=== PATIENT | female | born 1960 | race Caucasian/White ===

== ENCOUNTER → 2019-05-29 10:48 | Outpatient (BNVA) | payer OTHER, SELFPAY | PROVIDERS: Family Provider Nurse Practitioner; PCP Nurse Practitioner; Visit Provider Orthopaedic Surgery | DX: S52.501A Unspecified fracture of the lower end of right radius, initial encounter for closed fracture (principal); S52.611A Displaced fracture of right ulna styloid process, initial encounter for closed fracture; X58.XXXA Exposure to other specified factors, initial encounter | CPT/HCPCS: 73110 ==

== ENCOUNTER 2019-12-05 11:47 | Outpatient (CLI) | payer OTHER, SELFPAY | END 2019-12-05 11:48 | disposition home or self-care (01) | LOC: SPT 11:48 | PROVIDERS: Family Provider Nurse Practitioner; PCP Nurse Practitioner; Visit Provider Orthopaedic Surgery | DX: Z46.89 Encounter for fitting and adjustment of other specified devices (principal); M18.11 Unilateral primary osteoarthritis of first carpometacarpal joint, right hand | CPT/HCPCS: 97760; L3924 ==

== ENCOUNTER → 2020-01-09 13:53 | Outpatient (BNVA) | payer OTHER, SELFPAY | PROVIDERS: Family Provider Nurse Practitioner; PCP Nurse Practitioner; Visit Provider Urology | DX: N39.0 Urinary tract infection, site not specified (principal); R31.29 Other microscopic hematuria | CPT/HCPCS: 81001 ==

== ENCOUNTER 2020-02-05 08:18 | Outpatient (CLI) | payer OTHER, SELFPAY ==
--- NOTE | 2020-02-05 08:30 | CT_ITS ---
WS: [id number] CT CHEST WITH INTRAVENOUS CONTRAST HISTORY: rib pain L side x 5 weeks, pain inspiration, cough; surgical clearance TECHNIQUE: Contiguous 5 mm axial imaging performed on the thorax. Coronal and sagittal reformats are submitted. All CT scans at [facility] use at least one of these dose optimization techniq ues: automated exposure control; mA and/or kV adjustment per patient size (includes targeted exams wh ere dose is matched to clinical indication); or iterative reconstruction. CONTRAST: Omnipaque 300; 95 mL IV. DLP: 935.96 mGycm COMPARISON: None available. Lungs and central airway: Pulmonary hyperexpansion and changes of emphysema. There is subsegmental sc attered multi lobar groundglass opacifications. No dense consolidations. Mild thickening along the fi ssures. Pleura: Normal. No pleural effusion. Heart and pericardium: Mild enlargement of the heart chambers. No pericardial effusion. Mediastinum and albina: No mediastinum or hilar adenopathy. Vessels: Normal size aortic and pulmonary artery. No coronary artery calcifications. Chest wall and lower neck: No soft tissue masses. Upper abdomen: Small hiatal hernia. Visualized liver is normal. Negative gallbladder. LEFT adrenal ad enoma measures 1.5 cm. No change since 06/05/2008. Osseous structures: There are several nondisplaced fractures in the inferior anterolateral LEFT thora x. Fractures involve at least the sixth through ninth ribs. Fourth and fifth ribs are slightly deform ed may be from old fractures or subacute fractures. CT/CT chest w con* [id number] IMPRESSION: 1. Healing nondisplaced LEFT anterolateral rib fractures. 6 through ninth ribs are fractured with partial healing. Possible remote fractures involving the fo urth and fifth ribs. 2. Chronic emphysema. 3. Scattered pulmonary groundglass opacifications. Consider pneumonitis. 4. Stable LEFT adrenal adenoma.
[2020-02-05] MEDS: iohexol 300 mg/mL 100 mL Btl IV (08:52)
== END 2020-02-05 08:19 | disposition home or self-care (01) ==
LOC: RADWPI 08:22
PROVIDERS: Family Provider Nurse Practitioner; PCP Nurse Practitioner; Visit Provider Nurse Practitioner Family
DX: R07.81 Pleurodynia (principal); R07.1 Chest pain on breathing; R05 Cough; S22.42XA Multiple fractures of ribs, left side, initial encounter for closed fracture; X58.XXXA Exposure to other specified factors, initial encounter; J43.9 Emphysema, unspecified; D35.02 Benign neoplasm of left adrenal gland
CPT/HCPCS: 71260; Q9967

== ENCOUNTER 2020-02-29 11:18 | Outpatient (CLI) | payer OTHER, SELFPAY ==
--- NOTE | 2020-02-29 16:15 | XR_ITS ---
WS: [id number] Bone mineral density performed on a [employer], today Clinical data: RIB FRACTURE Findings: The first 4 lumbar vertebral bodies demonstrated the bone mineral density of 0.926 g/cm2 for a young adult T score of -2.1. Measurement of the left hip reveals a bone mineral density of 0.802 g/cm2 with a young adult T score of -1.6. Measurement of the right hip reveals the bone mineral density of 0.768 g/cm2 for young adult T score of -1.9. XR/XR DEXA axial skeleton* [id number] Impression: Osteopenia of the lumbar spine and both hips.
== END 2020-02-29 11:19 | disposition home or self-care (01) ==
LOC: RADWPI 11:21
PROVIDERS: Family Provider Nurse Practitioner; PCP Nurse Practitioner; Visit Provider Nurse Practitioner Family
DX: S22.39XA Fracture of one rib, unspecified side, initial encounter for closed fracture (principal); M85.89 Other specified disorders of bone density and structure, multiple sites; X58.XXXA Exposure to other specified factors, initial encounter
CPT/HCPCS: 77080

== ENCOUNTER → 2020-03-14 14:23 | Outpatient (BNVA) | payer OTHER, SELFPAY | PROVIDERS: Family Provider Nurse Practitioner; PCP Nurse Practitioner; Visit Provider Internal Medicine Critical Care Medicine | DX: Z11.59 Encounter for screening for other viral diseases (principal) | CPT/HCPCS: 87635 ==

== ENCOUNTER 2020-03-19 08:59 | Outpatient (CLI) | payer OTHER, SELFPAY ==
--- NOTE | 2020-03-19 12:20 | PFTS_ITS ---
Date of Study:03/19/20 Date of Dictation: MECHANICS: Forced vital capacity (FVC) is normal. Forced expiratory volume in one second (FEV1) is normal. FEV1/FVC is normal. FLOW VOLUME LOOP: Normal. LUNG VOLUMES: Total lung capacity (TLC) is reduced. Residual volume (RV) is reduced. DIFFUSING CAPACITY FOR CARBON MONOXIDE: Mildly reduced. INTERPRETATION: The spirometry is normal. There is reduction of total lung capacity and residual volume. This could be seen in early restrictive disease like interstitial lung disease. Gas exchange (DLCO) is mildly reduced. MTDD
== END 2020-03-19 09:00 | disposition home or self-care (01) ==
LOC: RT 09:00
PROVIDERS: PCP Nurse Practitioner; Visit Provider Internal Medicine Critical Care Medicine
DX: J43.9 Emphysema, unspecified (principal)
CPT/HCPCS: 94010; 94726; 94729

== ENCOUNTER 2020-05-12 07:32 | Outpatient (CLI) | payer OTHER, SELFPAY ==
[2020-05-12 08:24] VITALS: BMI 27.3
--- NOTE | 2020-05-12 09:09 | ECG_ITS ---
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 Interpretive Statements NAME OF STUDY: EXERCISE SESTAMIBI STRESS TEST INDICATION: Exertional Chest Pain Baseline blood pressure of 166/99 mm Hg, heart rate of 86 beats per minute and oxygen saturation of 96%. EKG showed normal sinus rhythm, normal axis with normal ST-Ts. The patient exercised for 5 minutes 6 seconds on a standard Dalton protocol. Patient attained a maximum heart rate of 153 beats per minute(95% of the maximum predicted heart rate) with a blood pressure at the peak exercise of 216/89 mm Hg and oxygen saturation 96%. The EKG at the peak exercise revealed sinus tachycardia with no significant ST-T wave changes. Patient did not have any chest pain or any significant arrhythmis with the exercise. During the recovery phase, there were no new changes. Blood pressure at the end of the recovery phase was 141/92 mm Hg with a heart rate of 94 beat per minute and oxygen saturation 97%. CONCLUSION: 1. Normal EKG response to treadmill exercise. 2. No exercise-induced chest pain or cardiac arrhythmia. 3. Fair exercise tolerance, attained a maximum of 7 METs. 4. Baseline hypertension with hypertensive response to exercise. 5. Perfusion scan will be documented separately. Electronically Signed On 05-13-2020 10:27:38 SIZING MACHINE TENDER by Kelsey Vidales M.D. [email or web address]
--- NOTE | 2020-05-12 09:09 | NMCV_ITS ---
NM mike perf SPECT r/s* [id number] Nupur Rodriguez Age: 60 Gender: F : 1960 Exam Date: 05/12/2020 09:13 Ordering Phys: Fidel Villar MD Technologist: ARNOL Navarro Exam Location: [facility] Indications: SHORTNESS OF BREATH STRESS TEST Please [facility] for [facility] IMAGE PROTOCOL Rest/Stress 1 Exercise Day Radiopharmaceutical Dose (mCi) Administration Site Administered by Rest: Tc-99m 10.9 IV ARNOL Navarro Sestamibi Stress:Tc-99m 31.3 IV Jessi Velazquez, COMPLIANCE SPECIALIST Sestamibi Rest: 12-May-2020 60 Discovery 630 Stress: 12-May-2020 15 Discovery 630 Radiopharmaceutical was injected at 88 % maximum heart rate. Images obtained in supine and prone position. SPECT RESULTS Technical Quality: Excellent Raw Data Analysis: Normal Image Corrections: No attenuation or motion correction applied Summed Stress Score: 0 Summed Rest Score: 0 Summed Difference Score: 0 PERFUSION FINDINGS SPECT images demonstrate homogeneous tracer distribution throughout the myocardium. FUNCTIONAL RESULTS (calculated via Gated SPECT) Stress Image LV EF (%): 78 Stress EDV (mL):87 TID: 1.02 Stress ESV (mL):19 FUNCTIONAL FINDINGS: The left ventricle is normal in size. Transient Ischemia Dilatation of 1. There is normal left ventricular systolic function. The left ventricular ejection fraction is normal with a value of 78%. No regional wall motion abnormality. There is normal left ventricular wall thickening. IMPRESSIONS 1. Myocardial perfusion imaging is normal. 2. Overall left ventricular systolic function is normal without regional wall motion abnormalities. 3. The left ventricular ejection fraction is normal with a value of 78%. 4. This study suggests a low likelihood of angiographically significant coronary artery disease. Kelsey Vidales MD (Electronically Signed) Final Date: 12 May 2020 14:51 S
[2020-05-12 09:55] VITALS: BP 141/92; PULSE 86
== END 2020-05-12 07:33 | disposition home or self-care (01) ==
PROVIDERS: PCP Nurse Practitioner; Visit Provider Internal Medicine Critical Care Medicine
DX: R07.9 Chest pain, unspecified (principal)
CPT/HCPCS: 78452; 93017; A9500

== ENCOUNTER → 2020-07-15 09:19 | Outpatient (BNVA) | payer OTHER, SELFPAY | PROVIDERS: PCP Nurse Practitioner; Visit Provider Urology | DX: N39.0 Urinary tract infection, site not specified (principal) | CPT/HCPCS: 81003 ==

== ENCOUNTER → 2020-08-06 11:45 | Outpatient (BNVA) | payer OTHER, SELFPAY | PROVIDERS: PCP Nurse Practitioner; Visit Provider Specialist | DX: R56.9 Unspecified convulsions (principal); G43.711 Chronic migraine without aura, intractable, with status migrainosus; F17.210 Nicotine dependence, cigarettes, uncomplicated | CPT/HCPCS: 99215 ==

== ENCOUNTER 2020-09-09 12:48 | Outpatient (CLI) | payer OTHER, SELFPAY ==
--- NOTE | 2020-09-09 13:01 | CT_ITS ---
WS: [id number] Exam: CT chest wo con [id number] Date/Time of Exam: 09/09/2020 1:50 PM Reason For Exam: SHORTNESS OF BREATH DLP: 294.[address] scans at [facility] use at least one of these dose optimization techniques: automat ed exposure control; mA and/or kV adjustment per patient size (includes targeted exams where dose is matched to clinical indication); or iterative reconstruction. Comparison 07/07/2019. High-resolution CT scan performed. The lungs are hyperinflated. No acute infiltrates are seen. Stable appearing small nodular density in the apex of the left lung most likely representing scar tissue formation. There is bronchiectasis. T here are scattered groundglass densities in both lungs unchanged. No pleural effusion. No pericardial effusion. The airway is patent. The thoracic aorta is normal in caliber. No significant mediastinal or hilar lymphadenopathy. Stable small left adrenal nodule most likely an adenoma. Coronary artery ca lcifications noted. No destructive bone lesions are demonstrated. CT/CT chest wo con [id number] IMPRESSION: 1. Pulmonary parenchymal scar tissue formation in the left apex stable. 2. No suspicious pulmonary mass or nodule. 3. Bronchiectasis and emphysematous changes. Scattered groundglass densities in both lungs which is been noted previously. 4. No lymphadenopathy in the chest. 5. Stable small left adrenal nodule most likely an adenoma.
== END 2020-09-09 12:49 | disposition home or self-care (01) ==
LOC: RAD 12:50
PROVIDERS: PCP Nurse Practitioner; Visit Provider Internal Medicine Critical Care Medicine
DX: R06.02 Shortness of breath (principal); J47.9 Bronchiectasis, uncomplicated
CPT/HCPCS: 71250

== ENCOUNTER → 2020-12-04 13:22 | Outpatient (BNVA) | payer OTHER, SELFPAY | PROVIDERS: PCP Nurse Practitioner; Visit Provider Surgery | DX: Z86.010 Personal history of colon polyps (principal); Z20.822 Contact with and (suspected) exposure to COVID-19 | CPT/HCPCS: 87635 ==

== ENCOUNTER → 2020-12-09 09:15 | Outpatient (BNVA) | payer OTHER, SELFPAY | PROVIDERS: PCP Nurse Practitioner; Visit Provider Specialist | DX: R55 Syncope and collapse (principal); G43.711 Chronic migraine without aura, intractable, with status migrainosus; J43.9 Emphysema, unspecified; F17.290 Nicotine dependence, other tobacco product, uncomplicated | CPT/HCPCS: 99214 ==

== ENCOUNTER 2021-07-06 10:58 | Outpatient (CLI) | payer OTHER, SELFPAY ==
--- NOTE | 2021-07-06 11:00 | MR_ITS ---
WS: [id number] MRI HEAD WITHOUT CONTRAST TECHNIQUE: Sagittal T1, T2 axial, T2 axial FLAIR, axial and coronal T1 images, axial susceptibility w eighted imaging, axial diffusion weighted images, and coronal T2 images were obtained. CLINICAL INFORMATION: Z86.73 - Personal history of transient ischemic attack (T... COMPARISON: MRI 04/03/[address] 2018 FINDINGS: No evidence of restricted diffusion to suggest acute ischemia. Ventricular system and basal cisterns are patent. Moderate supratentorial subcortical and periventricular white matter changes moderately progressed co mpared to 2014 likely due to small vessel disease in a patient this age. This can also be seen in ass ociation with hypertension, diabetes, and migraine headaches. Normal posterior fossa. Normal vascular flow voids at the skull base. No extra-axial fluid collection s. No evidence of mass or mass effect. Paranasal sinuses and mastoid air cells well aerated. Mild muc osal thickening in the mastoid tips. No hemosiderin on the susceptibly weighted images. Normal optic chiasm and pituitary infundibulum. Te mporal lobes and hippocampal formations are normal in appearance. MR/MR head wo con* [id number] IMPRESSION: 1. No evidence of restricted diffusion to suggest acute ischemia. 2. Moderate supratentorial white matter changes progressed compared to 2013 li akua due to small vessel disease in a patient this age. Mild parenchymal volume loss. 3. No hemosiderin on the susceptibly weighted images. 4. Temporal lobes and hippocampal formations are normal in appearance. 5. Paranasal sinuses and mastoid air cells well aerated. 6. No other significant findings.
--- NOTE | 2021-07-06 11:45 | MR_ITS ---
WS: [id number] MRA HEAD TECHNIQUE: Axial 3-D TOF images obtained with axial images and axial, sagittal, and coronal 2-D refor matted images. CLINICAL INFORMATION: Z86.73 - Personal history of transient ischemic attack (T... COMPARISON: None. FINDINGS: Distal vertebral bodies are patent. Basilar artery is patent. LEFT dominant distal vertebral artery. Normal vascularity to the OYSTER TONGER territory bilaterally. Both ICAs are patent at the skull base. Normal vascularity to the TOR and MCA territories bilaterally . No evidence of high-grade proximal stenosis or aneurysm. MR/MR angio head wo con [id number] IMPRESSION: Normal intracranial MRA.
== END 2021-07-06 10:59 | disposition home or self-care (01) ==
LOC: RAD 11:02
PROVIDERS: PCP Nurse Practitioner; Visit Provider Specialist
DX: Z86.73 Personal history of transient ischemic attack (TIA), and cerebral infarction without residual deficits (principal)
CPT/HCPCS: 70544; 70551

== ENCOUNTER → 2021-07-16 09:54 | Outpatient (BNVA) | payer OTHER, SELFPAY | PROVIDERS: PCP Nurse Practitioner; Visit Provider Nurse Practitioner Family | DX: N39.0 Urinary tract infection, site not specified (principal) | CPT/HCPCS: 81003 ==

== ENCOUNTER 2021-11-13 12:52 | Emergency (ER) | payer OTHER, SELFPAY ==
[2021-11-13 13:26] VITALS: BP 153/76; PULSE 92; RESP 14; TEMP 36.5; O2SAT 97; BMI 22.8
--- NOTE | 2021-11-13 13:51 | ED_ITS ---
HPI - Back Pain/Injury General: Chief Complaint: Back Pain/Injury Stated Complaint: back pain Time Seen by Provider: 11/13/21 13:35 Source: patient Mode of arrival: ambulatory Limitations: no limitations History of Present Illness: Patient is a nice 61-year-old female who presents to ED today with a complaint of lower back pain that began approximately 6 days ago after she was carrying something heavy and twisted wrong. Patient states she has been treating conservatively at home with ice, heat, Salonpas, and Tylenol all without much relief of her discomfort. She states she is now getting muscle spasms that seem to be worse at night. She is not having any radicular symptoms into her lower extremities. She is not having any dysfunction with bowel or bladder. MD elicited complaint: back pain Pertinent past history: recent trauma Onset (ago): day(s) Timing: constant Severity: severe Pain scale (0-10): 8 Similar Symptoms Previously: No Location: lumbar spine, right lower back and left lower back Radiation: none Exacerbating factors: movement and lifting Relieving factors: none Context: while lifting and turning/twisting Associated symptoms: Reports no associated symptoms; Deny abdominal pain, chills or fever(s) Treatments prior to arrival: cold therapy, heat therapy and acetaminophen Work related injury: No Review of Systems Const: Denies: fever(s) or chills Card: Denies: chest pain Resp: Denies: dyspnea GI: Denies: abdominal pain : Denies: flank pain Musc: Reports: back pain; Denies: neck pain, extremity pain or joint pain Neuro: Denies: headache(s), numbness in extremities, weakness in extremities or sensory changes [facility] ED PFSH: Medical History GERD (gastroesophageal reflux disease) History of colon polyps Microscopic hematuria Migraines Recurrent UTI Symptoms consistent with longstanding history of chronic cystitis. Prompt breakthrough after completing antibiotics. Rib fracture Surgical History H/O wrist surgery S/P appendectomy S/P hysterectomy Status post colonoscopy Family History Father No problems noted. Mother , 32 Cancer Brain Social History (Reviewed 07/01/22 @ 13:57 by JYOTSNA Deluna Smoking and tobacco status: current every day smoker e-cigarettes E-Cigarette Details: vaporizer device and with nicotine E-cig/vape details: Hx of 0.5 PPD x 47 Years Quit status (tobacco): considering quitting Second hand smoke exposure: Yes Smoking risk assessment/counseling performed?: Yes Alcohol intake: never Counseling given: No Counseling given: No Lives independently: Yes Household members: spouse Marital status: Current occupational status: retired History of recent travel: No Current gender identity: Female Physical Exam Const: COMMON NORMALS: no acute distress, average body habitus, patient oriented x3, no limitations, healthy appearing, alert and well nourished GENERAL APPEARANCE: cooperative ORIENTATION/CONSCIOUSNESS: Yes awake, Yes oriented to person, Yes oriented to place and Yes oriented to time Neck/C-Spine: COMMON NORMALS: full ROM Resp: COMMON NORMALS: normal respiratory effort : COMMON NORMALS: Yes no CVA tenderness BLADDER/KIDNEY EXAM: Yes no CVA tenderness Back/Pelvis: COMMON NORMALS: no CVA tenderness THORACIC SPINE/UPPER BACK: Yes normal to inspection, No thoracic spinal tenderness, No paraspinal muscle tenderness and No paraspinal muscle spasm LUMBAR SPINE/LOWER BACK: Yes normal to inspection, No lumbar spinal tenderness, Yes paraspinal muscle tenderness, Yes paraspinal muscle spasm and Yes straight leg raise negative bilaterally PELVIS: Yes buttocks normal SACROILIAC JOINTS: Yes SI joints normal SACRUM: no tenderness COCCYX: no tenderness BACK IMAGE (FEMALE): 1. 2. TTP Extremity: COMMON NORMALS: normal to inspection and full ROM GENERAL: Yes normal exam except as noted Neuro: PEPE COMA SCALE: document GCS findings [place] coma scale eye opening: Spontaneous [place] coma scale verbal response: Orientated [place] coma scale motor response: Obey commands [place] coma scale total score: 15 COMMON NORMALS: patient oriented x3, moves all extremities, no focal motor deficits and no sensory deficits noted SENSORIUM/ORIENTATION: Yes alert, Yes oriented to person, Yes oriented to place and Yes oriented to time Skin: COMMON NORMALS: no rashes or lesions noted GENERAL SKIN EXAM: no rashes or lesions noted Course Vital Signs: Vital signs: Vital Signs Temperature 97.7 F 11/13/21 13:26 Pulse Rate 92 11/13/21 13:26 Respiratory Rate 14 11/13/21 13:26 Blood Pressure 153/76 11/13/21 13:26 Pulse Oximetry 97 11/13/21 13:26 MDM - Back Pain/Injury Medical Decision Making Patient states she feels markedly improved after IM medications. We will place her on methylprednisolone, robaxin, and ibuprofen that she can use at home. Recommend follow-up with primary care next week if back pain is not improving. Discharge Plan Discharge Patient Disposition: Home Clinical Impression: Strain of fascia of lower back Condition: Stable Prescriptions: New methocarbamol 500 mg tablet 1,000 mg PO Q8H Qty: 30 0RF ibuprofen 800 mg tablet 800 mg PO Q8H PRN (Reason: pain) Qty: 20 0RF Medrol (Rancho) 4 mg tablets,dose pack See Rx Instructions .ROUTE .COMPLEX Qty: 21 0RF Rx Instructions: orally per package directions No Action omeprazole 20 mg capsule,delayed release(DR/EC) 20 mg PO ONCE 0RF venlafaxine 75 mg capsule,extended release 24hr 75 mg PO BID Qty: 60 5RF Rx Instructions: For migraine prevention. Take 1 cap in the morning and 1 cap at night. Spiriva with HandiHaler 18 mcg capsule, w/inhalation device 1 cap INHALATION DAILY 30 Days Qty: 60 3RF Rx Instructions: puncture 1 cap using device; one dose = 2 inhalations meclizine 25 mg tablet 25 mg PO BID 30 Days Qty: 60 0RF fluticasone propionate [Flonase Allergy Relief] 50 mcg/actuation spray,suspension 1 spray intranasal BID Qty: 15.8 3RF Rx Instructions: administer into each nostril doxycycline hyclate 100 mg capsule 100 mg PO BID Qty: 30 2RF Discharge Orders: Discharge ED (Routine); Ordered 11/13/21 Ordered By: Kristen Dhaliwal Referrals: Erin Magana, HEALTH CARE SOCIAL WORKER-C [Primary Care Provider] - Patient Instructions: Low Back Strain (ED) Coding Level of Care Code ED Seismograph Chief for Jenny Fwtoño Exam Comprehensive
[2021-11-13] MEDS: dexamethasone 10 mg/mL INJ 8 MG IM (14:18)
[2021-11-13] MEDS: ketorolac 60 mg/2 mL INJ IM (14:18)
[2021-11-13] MEDS: orphenadrine 30 mg/mL Inj 2 mL 60 MG IM (14:19)
== END 2021-11-13 14:40 | disposition home or self-care (01) ==
PROVIDERS: Emergency Provider Physician Assistant; PCP Nurse Practitioner
DX: S39.012A Strain of muscle, fascia and tendon of lower back, initial encounter (principal); F17.290 Nicotine dependence, other tobacco product, uncomplicated; X50.1XXA Overexertion from prolonged static or awkward postures, initial encounter
CPT/HCPCS: 96372; 99284; J1100; J1885; J2360

== ENCOUNTER 2021-12-10 12:16 | Outpatient (CLI) | payer OTHER, SELFPAY ==
--- NOTE | 2021-12-10 12:38 | XR_ITS ---
WS: [id number] Exam: XR KUB [id number] Date/Time of Exam: 12/10/2021 12:39 PM Reason For Exam: RECURRENT UTI No bowel obstruction or free air. No sign of organ enlargement. There are ovoid opacities seen in the upper left abdomen and right pelvic region that may represent medication in the GI tract. Mild degen erative changes of the lumbar spine. Probable old low-grade compression fracture of T12. XR/XR KUB [id number] IMPRESSION: 1. No acute abdominal finding.
== END 2021-12-10 12:17 | disposition home or self-care (01) ==
PROVIDERS: PCP Nurse Practitioner; Visit Provider Urology
DX: N39.0 Urinary tract infection, site not specified (principal)
CPT/HCPCS: 74018; 81003

== ENCOUNTER 2021-12-16 09:39 | Outpatient (CLI) | payer OTHER, SELFPAY ==
--- NOTE | 2021-12-16 10:30 | CT_ITS ---
WS: [id number] CT ABDOMEN PELVIS TECHNIQUE: Noncontrast CT of the abdomen and pelvis with coronal and sagittal reformatted images. CLINICAL INFORMATION: RECURRENT UTI COMPARISON: CT 2009 DLP: 998.[address] scans at [facility] use at least one of these dose optimization techniques: automated e xposure control; mA and/or kV adjustment per patient size (includes targeted exams where dose is matc hed to clinical indication); or iterative reconstruction. FINDINGS: Mild hepatomegaly. Normal GE junction. Normal gallbladder. Noncontrast pancreas is normal. RIGHT adrenal gland is normal. LEFT adrenal adenoma measuring 2.1 cm. Noncontrast spleen is normal. N ormal noncontrast pancreas. No obstructing renal or ureteral calculi. No hydronephrosis. Incidental p elvic phleboliths. Normal noncontrast bladder. Sigmoid diverticulosis. No evidence of acute diverticu litis. Normal caliber abdominal aorta. Moderate aortic calcification. Lung bases are well aerated. Mild compression superior endplate T12 with minimal retropulsion posterior superior cortex. Mild cent ral canal stenosis. Persistent visualized fracture cleft. This may be subacute and recommend correlat ion for thoracolumbar pain. This can be further evaluated MRI. Suggestion of mild associated paravert ebral edema. This is new since CT chest February 05, 2020. Prior hysterectomy. CT/CT kidney stone [id number] IMPRESSION: 1. No obstructing renal or ureteral calculi. No hydronephrosis. 2. Normal noncontrast bladder. 3. Sigmoid diverticulosis. 4. Prior hysterectomy. 5. Mild compression superior endplate T12 with minimal retropulsion posterior superior cortex. Mild central canal stenosis. Persistent visualized fracture cl eft. This is suspicious for subacute fracture and recommend correlation for tho racolumbar pain. This can be further evaluated MRI.
== END 2021-12-16 09:40 | disposition home or self-care (01) ==
LOC: RAD 09:40
PROVIDERS: PCP Nurse Practitioner; Visit Provider Nurse Practitioner Family
DX: N39.0 Urinary tract infection, site not specified (principal); K57.30 Diverticulosis of large intestine without perforation or abscess without bleeding; Z90.710 Acquired absence of both cervix and uterus
CPT/HCPCS: 74176; 81003

== ENCOUNTER 2022-01-19 08:58 | Outpatient (CLI) | payer OTHER, SELFPAY ==
--- NOTE | 2022-01-19 08:00 | MR_ITS ---
WS: [id number] MRI THORACIC SPINE noncontrast. HISTORY: Age indeterminate T12 compression fracture. COMPARISON: CT 12/16/2021 TECHNIQUE: Multiplanar sequences are performed in sagittal and axial planes. Reverse S-shaped thoracolumbar scoliosis. Posterior thoracic vertebral bodies are normally aligned. D isc spaces are mildly narrowed throughout. There is increased signal throughout the T12 vertebral bod y without extension into the posterior elements. Concave deformity of the superior endplate T12. Loss of height by approximately 20%. Normal signal within the thoracic cord. Conus tapers normally and ends near L1. T1-2: Normal. T2-3: Mild bilateral facet arthritis. Mild LEFT foraminal narrowing due to facet arthritis. T3-4: Normal. T4-5: Normal. T5-6: Normal. T6-7: Normal. T7-8: Mild facet arthritis. No stenosis. T8-9: Mild facet arthritis. No stenosis. T9-10: Very shallow central disc protrusion without stenosis. Mild facet arthritis. T10-11: Mild bilateral facet arthritis. T11-12: Mild disc bulging. Mild bilateral foraminal narrowing. Very slight, less than 2 mm retropuls ion of posterior superior endplate of T12. MR/MR thoracic spin wo con* [id number] IMPRESSION: 1. T12 25% subacute fracture with only very minimal retropulsion of the clay artist ior superior endplate. Very mild bilateral foraminal narrowing. No high-grade s tenosis. Stenosis has not progressed since the prior CT from 12/16/2021. 2. Mild scoliosis. 3. Facet joint arthritis is mild throughout the thoracic spine as described ab ove. No central stenosis.
== END 2022-01-19 08:59 | disposition home or self-care (01) ==
LOC: RAD 08:59
PROVIDERS: PCP Nurse Practitioner; Visit Provider Family Medicine
DX: R93.7 Abnormal findings on diagnostic imaging of other parts of musculoskeletal system (principal); M47.814 Spondylosis without myelopathy or radiculopathy, thoracic region; M41.9 Scoliosis, unspecified
CPT/HCPCS: 72146; 72148

== ENCOUNTER 2022-01-19 08:59 | Outpatient (CLI) | payer OTHER, SELFPAY ==
--- NOTE | 2022-01-19 08:45 | MR_ITS ---
WS: [id number] MRI LUMBAR SPINE NONCONTRAST HISTORY: T12 fracture. COMPARISON: None available. TECHNIQUE: Sagittal and axial multisequence imaging is submitted. Normal lumbar alignment with no compression fractures or marrow edema. Mild disc desiccation throughout the lumbar spine. Very slight straightening of the lordosis. Conus terminates normally at L1-2 disc level. T12 20% compression fracture with edema throughout the vertebral body. Subacute compression fracture by 20%. No significant retropulsion and no contact on the conus. L1-L2: Normal. L2-L3: Mild facet and ligamentum flavum hypertrophy. No stenosis. L3-L4: Very mild disc bulging with mild ligamentum flavum and facet arthritis. Small amount of fluid in the facet joints. No significant stenosis. L4-L5: Mild disc bulging and ligamentum flavum and facet arthritis. Small amount of fluid in the face t joints. Mild encroachment into the subarticular recesses. No stenosis. L5-S1: Mild annular disc bulging and osteophytic ridging. Small disc osteophyte complexes in the fora mariaelena, slightly greater on the LEFT. Mild contact on the LEFT exiting L5 nerve root. Paravertebral soft tissues are negative. MR/MR lumbar spine wo con* [id number] IMPRESSION: 1. Mild bilateral foraminal stenosis at L5-S1 with slightly greater disc osteo phyte contact on the LEFT L5 nerve root. 2. Subacute T12, 20% compression fracture without retropulsion.
== END 2022-01-19 09:00 | disposition home or self-care (01) ==
LOC: RAD 09:00
PROVIDERS: PCP Nurse Practitioner; Visit Provider Family Medicine
DX: R93.7 Abnormal findings on diagnostic imaging of other parts of musculoskeletal system (principal); M48.07 Spinal stenosis, lumbosacral region; M25.78 Osteophyte, vertebrae; S22.089A Unspecified fracture of T11-T12 vertebra, initial encounter for closed fracture; X58.XXXA Exposure to other specified factors, initial encounter
CPT/HCPCS: 72148

== ENCOUNTER → 2022-01-29 10:32 | Outpatient (BNVA) | payer OTHER, SELFPAY | PROVIDERS: PCP Nurse Practitioner; Visit Provider Nurse Practitioner Family | DX: N39.0 Urinary tract infection, site not specified (principal); R31.29 Other microscopic hematuria | CPT/HCPCS: 81003 ==

== ENCOUNTER → 2022-02-23 14:08 | Outpatient (BNVA) | payer OTHER, SELFPAY | PROVIDERS: PCP Nurse Practitioner; Visit Provider Orthopaedic Surgery | DX: M48.062 Spinal stenosis, lumbar region with neurogenic claudication (principal); M25.78 Osteophyte, vertebrae | CPT/HCPCS: 72110 ==

== ENCOUNTER 2022-05-26 05:28 | Day surgery (SDC) | payer OTHER, SELFPAY ==
[2022-05-24 09:17] VITALS: BMI 22.8
[2022-05-26 06:08] VITALS: BP 113/74; PULSE 76; RESP 18; TEMP 36.5; O2SAT 96
[2022-05-26] MEDS: sodium chloride 0.9% 1,000 ML 30 ML IV ×2 (06:17→07:37)
--- NOTE | 2022-05-26 06:23 | PM.HP ---
Providers/Chief Complaint Primary Care Provider: ALEXANDRA Angeles Chief Complaint: K21.9, R10.31 History of Present Illness Nupur Rodriguez is a 62 year old female here for EGD and colonoscopy Medications/Allergies Home Medications Medication Instructions Recorded Confirmed Last Taken Type omeprazole 20 mg capsule,delayed 20 mg PO DAILY 05/29/19 05/26/22 05/25/22 History release ibuprofen 800 mg tablet 800 mg PO Q8H PRN pain #20 tabs 11/13/21 05/26/22 Unknown Rx doxycycline hyclate 100 mg capsule 100 mg PO BID #60 caps 01/29/22 05/26/22 05/25/22 Rx fluticasone propionate 50 1 spray intranasal BID PRN 05/24/22 05/26/22 05/25/22 History mcg/actuation nasal Congestion spray,suspension (Flonase Allergy Relief) venlafaxine 75 mg capsule,extended 75 mg PO DAILY 05/24/22 05/26/22 05/25/22 History release 24 hr Allergies Allergy/AdvReac Type Severity Reaction Status Date / Time morphine Allergy nausea Verified 05/26/22 06:05 Penicillins Allergy Unknown Verified 05/26/22 06:05 PFSH Acute PFSH: Medical History GERD (gastroesophageal reflux disease) History of colon polyps Microscopic hematuria Migraines Recurrent UTI Symptoms consistent with longstanding history of chronic cystitis. Prompt breakthrough after completing antibiotics. Rib fracture Surgical History H/O wrist surgery History of esophagogastroduodenoscopy (EGD) Hx of colonoscopy with polypectomy 10 yrs ago S/P appendectomy S/P hysterectomy Status post colonoscopy Family History Father No problems noted. Mother , 32 Cancer Brain Social History Smoking and tobacco status: current every day smoker e-cigarettes E-Cigarette Details: vaporizer device and with nicotine E-cig/vape details: Hx of 0.5 PPD x 47 Years Quit status (tobacco): considering quitting Second hand smoke exposure: Yes Smoking risk assessment/counseling performed?: Yes Alcohol intake: never Counseling given: No Counseling given: No Lives independently: Yes Household members: spouse Marital status: / Current occupational status: retired History of recent travel: No Current gender identity: Female Vitals/I&O/Wt Last Vital Signs Temp 97.7 F 05/26/22 06:08 Pulse 76 05/26/22 06:08 Resp 18 05/26/22 06:08 BP 113/74 05/26/22 06:08 Pulse Ox 96 05/26/22 06:08 O2 Del Method 05/26/22 06:08 Weight last 48 hrs Weight 150 lb A&P Assessment and plan (1) History of colon polyps: Plan EGD and colonoscopy with random biopsies and stool studies Attestations Medical Necessity Statement*: Home Coding Level of Care Code Acute Control Valve Mechanic for Jenny Fwd Diagnoses History of colon polyps Z86.010
--- NOTE | 2022-05-26 06:46 | ANES.PREANE2 ---
Pre-Anesthetic Assessment Height/Weight: Height 1.73 m Weight 68.039 kg Temp Pulse Resp BP Pulse Ox O2 Del Method 97.7 F 76 18 113/74 96 05/26/22 06:08 05/26/22 06:08 05/26/22 06:08 05/26/22 06:08 05/26/22 06:08 05/26/22 06:08 Operation Date: 05/26/22 07:00 Proposed Procedures p EGD and Colonoscopy 22407,28329,K21.9,R10.31,K52.9(Not Applicable) - Joel Hicks DO s Colonoscopy(Not Applicable) - Joel Hicks DO Was Beta Colt taken within 24 hours: N/A Was Clonidine taken within 24 hours: N/A Last intake: Intake Last Liquid Date 05/25/22 Last Liquid Time 20:30 Last Solid Date 05/25/22 Last Solid Time 06:00 Last Intake: 20:30 Social Tobacco 1/2ppd pack(s) per day 50 pack years Exam alert, oriented x 3, clear to auscultation bilaterally and regular rate & rhythm Airway Submandibular: within normal limits Cervical ROM: within normal limits Mallampati: Class II History/ROS No significant history except as noted Pulmonary Chronic Obstructive Pulmonary Disease CV/HEM None reported chronic infections Hepatic None reported GI Gastroesophageal Reflux Disease Metabolic None reported Musc/skel Lower Back Pain Neuropsych Anxiety Anesthetic Plan ASA status: 3 Anesthesia: MAC Risk of > 500 ml blood loss (7ml/kg in children): No Medications/Allergies Home Medications Medication Instructions Recorded Confirmed Last Taken Type omeprazole 20 mg capsule,delayed 20 mg PO DAILY 05/29/19 05/26/22 05/25/22 History release ibuprofen 800 mg tablet 800 mg PO Q8H PRN pain #20 tabs 11/13/21 05/26/22 Unknown Rx doxycycline hyclate 100 mg capsule 100 mg PO BID #60 caps 01/29/22 05/26/22 05/25/22 Rx fluticasone propionate 50 1 spray intranasal BID PRN 05/24/22 05/26/22 05/25/22 History mcg/actuation nasal Congestion spray,suspension (Flonase Allergy Relief) venlafaxine 75 mg capsule,extended 75 mg PO DAILY 05/24/22 05/26/22 05/25/22 History release 24 hr Allergies Allergy/AdvReac Type Severity Reaction Status Date / Time morphine Allergy nausea Verified 05/26/22 06:05 Penicillins Allergy Unknown Verified 05/26/22 06:05 Current Medications Generic Name Dose Route Start Last Admin Trade Name Luma PRN Reason Stop Dose Admin Sodium Chloride 1,000 mls @ 30 mls/hr 05/26/22 06:00 05/26/22 06:17 Sodium Chloride 0.9% IV 05/27/22 05:59 30 mls/hr .Q24H RUBY Administration PFSH Anesthesia Medical History GERD (gastroesophageal reflux disease) History of colon polyps Microscopic hematuria Migraines Recurrent UTI Symptoms consistent with longstanding history of chronic cystitis. Prompt breakthrough after completing antibiotics. Rib fracture Surgical History H/O wrist surgery History of esophagogastroduodenoscopy (EGD) Hx of colonoscopy with polypectomy 10 yrs ago S/P appendectomy S/P hysterectomy Status post colonoscopy Family History Father No problems noted. Mother , 32 Cancer Brain Social History Smoking and tobacco status: current every day smoker e-cigarettes E-Cigarette Details: vaporizer device and with nicotine E-cig/vape details: Hx of 0.5 PPD x 47 Years Quit status (tobacco): considering quitting Second hand smoke exposure: Yes Smoking risk assessment/counseling performed?: Yes Alcohol intake: never Counseling given: No Counseling given: No Lives independently: Yes Household members: spouse Marital status: / Current occupational status: retired History of recent travel: No Current gender identity: Female Data Anesthesia Cardiac Studies: Sestamibi Stress Test (Cardiology) 05/12/20
[2022-05-26 06:58] LABS: Glucose Point of Care 94 mg/dL (70-110)
[2022-05-26 07:46] VITALS: BP 139/83; PULSE 86; RESP 20; TEMP 36.4; O2SAT 95
[2022-05-26 07:57] VITALS: BP 152/88; PULSE 74; RESP 16; O2SAT 96
--- NOTE | 2022-05-26 13:32 | ANE.PACU2 ---
Inpatient post-anesthesia follow up: Airway intact: Yes Vital signs: Temperature 97.6 F Pulse Rate 74 Respiratory Rate 16 Blood Pressure 152/88 Pulse Oximetry 96 Oxygen Delivery Me thod Room Air Oxygen Flow Rate Fraction of Inspir ed Oxygen Hydration adequate: Yes Nausea and vomiting: No Pain level: 1 Mental status: Baseline
== END 2022-05-26 08:13 | disposition home or self-care (01) ==
PROVIDERS: PCP Nurse Practitioner; Visit Provider Surgery
PROC: 0DJ08ZZ Inspection of Upper Intestinal Tract, Via Natural or Artificial Opening Endoscopic (ICD-10-PCS; CPT 43235; principal; 2022-05-26 07:00)
PROC: 0DJD8ZZ Inspection of Lower Intestinal Tract, Via Natural or Artificial Opening Endoscopic (ICD-10-PCS; CPT 45378; 2022-05-26 07:00)
DX: K52.9 Noninfective gastroenteritis and colitis, unspecified (principal); R10.31 Right lower quadrant pain; K21.9 Gastro-esophageal reflux disease without esophagitis; Z86.010 Personal history of colon polyps; K57.30 Diverticulosis of large intestine without perforation or abscess without bleeding; K44.9 Diaphragmatic hernia without obstruction or gangrene; K29.50 Unspecified chronic gastritis without bleeding; K63.5 Polyp of colon; J44.9 Chronic obstructive pulmonary disease, unspecified; F41.9 Anxiety disorder, unspecified; F17.290 Nicotine dependence, other tobacco product, uncomplicated
CPT/HCPCS: 36416; 43239; 45380; 45385; 82274; 82962; 83630; 87493; 87506; 88305; J2704; J7030

== ENCOUNTER → 2022-06-08 11:14 | Outpatient (BNVA) | payer OTHER, SELFPAY | PROVIDERS: PCP Nurse Practitioner; Visit Provider Urology | DX: N30.20 Other chronic cystitis without hematuria (principal); R33.9 Retention of urine, unspecified; R31.29 Other microscopic hematuria | CPT/HCPCS: 81003 ==

== ENCOUNTER 2022-07-06 11:54 | Outpatient (CLI) | payer OTHER, SELFPAY ==
--- NOTE | 2022-07-06 11:45 | US_ITS ---
WS: [id number] RIGHT UPPER QUADRANT ULTRASOUND HISTORY: Abdominal pain COMPARISON: None available. Liver: 16.4 cm in length. Normal size liver. No bile duct dilatation or mass. Portal Vein: Normal hepatopetal flow with monophasic waveform. Gallbladder: Normally distended gallbladder with no stones or wall thickening. CBD: 0.6 cm Pancreas: Normal size and echogenicity. Right kidney: 9.5 cm in length. Normal size and echogenicity. No hydronephrosis or mass. Aorta and IVC: Unremarkable abdominal aorta and IVC. No ascites. US/US gall bladder [id number] IMPRESSION: Normal RIGHT upper quadrant ultrasound.
== END 2022-07-06 11:55 | disposition home or self-care (01) ==
PROVIDERS: PCP Nurse Practitioner; Visit Provider Surgery
DX: R10.9 Unspecified abdominal pain (principal)
CPT/HCPCS: 76705

== ENCOUNTER 2022-08-06 21:05 | Emergency (ER) | payer OTHER, SELFPAY ==
[2022-08-06 21:12] VITALS: BP 131/86; PULSE 93; RESP 16; TEMP 36.3; O2SAT 96; BMI 23.2
--- NOTE | 2022-08-06 21:35 | ED_ITS ---
HPI - Eye Problem General: Chief complaint: Eye Problems Stated complaint: cataract surgery Wed. feels pressure on eye Time Seen by Provider: 08/06/22 21:35 History of Present Illness: Ms. Rodriguez is a 62-year-old lady with recent history of cataract surgery with Dr. Fonseca at [facility] 2 days ago presenting to the emergency department due to eye pain and severe photophobia. She reports having some pain and photophobia yesterday and presented for follow- up where intraocular pressure was elevated at 58. She received eyedrops and was discharged with a pill medication, probably acetazolamide, however she lost that. She was not discharged with any other eyedrops other than antibiotic eyedrops. Symptoms have worsened throughout the day. Severe in intensity. No other specific changes in health, exacerbating, or alleviating factors identified. Onset (ago): hour(s) Location: right eye Eye Symptoms: burning, redness, pain and photophobia Severity: severe If Pain, Quality: aching and stabbing Context: other Associated symptoms: Reports headache(s) Review of Systems General: Reports: 10 or more systems reviewed and unremarkable except in HPI and below Neuro: Reports: headache(s) PFSH ED PFSH: Medical History GERD (gastroesophageal reflux disease) History of colon polyps Microscopic hematuria Migraines Recurrent UTI Symptoms consistent with longstanding history of chronic cystitis. Prompt breakthrough after completing antibiotics. Rib fracture Surgical History H/O wrist surgery History of esophagogastroduodenoscopy (EGD) Hx of colonoscopy with polypectomy 10 yrs ago S/P appendectomy S/P hysterectomy Status post colonoscopy Family History Father No problems noted. Mother , 32 Cancer Brain Social History Smoking and tobacco status: current every day smoker e-cigarettes E-Cigarette Details: vaporizer device and with nicotine E-cig/vape details: Hx of 0.5 PPD x 47 Years Quit status (tobacco): considering quitting Second hand smoke exposure: Yes Smoking risk assessment/counseling performed?: Yes Alcohol intake: never Counseling given: No Counseling given: No Lives independently: Yes Household members: spouse Marital status: / Current occupational status: retired Current gender identity: Female Physical Exam Const: COMMON NORMALS: alert GENERAL APPEARANCE: cooperative, well developed and in distress (Due to discomfort) HENMT: COMMON NORMALS: normocephalic and atraumatic HEAD & SCALP: normocephalic and atraumatic Eye: OTHER: Limited exam secondary to patient severity of symptoms, there is some conj unctival injection, no evidence of spreading cellulitis, severe photosensitivity. Neck/C-Spine: COMMON NORMALS: supple GENERAL: Yes trachea midline Resp: COMMON NORMALS: clear to auscultation bilaterally EFFORT & INSPECTION: Yes able to speak in complete sentences AUSCULTATION: clear to auscultation bilaterally Cardio: COMMON NORMALS: regular rate and regular rhythm RATE: regular rate RHYTHM: regular rhythm GI: COMMON NORMALS: Soft to palpation PALPATION: Yes Soft to palpation and No Tenderness to palpation present (GI) Extremity: GENERAL: Yes normal exam except as noted and No edema Neuro: COMMON NORMALS: moves all extremities SENSORIUM/ORIENTATION: Yes alert and No Orientation impaired Psych: COMMON NORMALS: mental status grossly normal and Normal thought process present THOUGHT PROCESS: Normal thought process present Course Vital Signs: Vital signs: Vital Signs Temperature 97.4 F L 08/06/22 21:12 Pulse Rate 82 08/07/22 00:35 Respiratory Rate 16 08/07/22 00:35 Blood Pressure 122/84 08/07/22 00:35 Pulse Oximetry 97 08/07/22 00:35 Oxygen Delivery Me thod 08/06/22 21:12 MDM - Eye Problem Medical Decision Making 62-year-old lady with recent ophthalmologic surgery presenting to the emergency department for severe eye pain. She had surgery in [place] and returned yesterday noting a elevated intraocular pressure. Currently she was discharged on Po medications though denies any other medications that she was prescribed. She subsequently seems to have lost these. Ophthalmology consulted and came to about the patient. With treatment patient improved and plan discussed for follow-up in the morning. On reassessment patient feels improved and is comfortable with plan. Most likely etiology of patient's symptoms is elevated intraocular pressure in the context of recent surgery. The results of ED evaluation were discussed with the patient including prescriptions and/or symptomatic cares (if applicable) including appropriate and responsible use, followup plan, and return precautions. The patient verbalized understanding and felt safe for discharge. Medical Records I reviewed the patient's medical records. Lab Data I reviewed the patient's lab results. Discharge Plan Discharge Patient Disposition: Home Clinical Impression: Pain, eye, right, Elevated IOP Condition: Stable Prescriptions: New ondansetron 4 mg tablet,disintegrating 4 mg PO Q8H PRN (Reason: nausea and vomiting) Qty: 15 0RF oxycodone 5 mg tablet 5 mg PO Q4H PRN (Reason: pain) Qty: 5 0RF No Action doxycycline hyclate 100 mg capsule 100 mg PO BID Qty: 60 12RF methenamine hippurate 1 gram tablet 1 g PO BID Qty: 60 12RF Rx Instructions: 1 pill twice a day with 1 g vitamin C each dose venlafaxine 75 mg capsule,extended release 24hr 75 mg PO DAILY Rx Instructions: For migraine prevention. Take 1 cap in the morning and 1 cap at night. fluticasone propionate [Flonase Allergy Relief] 50 mcg/actuation spray,suspension 1 spray intranasal BID PRN (Reason: Congestion) Rx Instructions: administer into each nostril Protonix 40 mg tablet,delayed release (DR/EC) 40 mg PO BID 42 Days Qty: 84 1RF ibuprofen 800 mg tablet 800 mg PO Q8H PRN (Reason: pain) Qty: 20 0RF Discharge Orders: Discharge ED (Routine); Ordered 08/06/22 Ordered By: Serjio Rudolph Referrals: Erin Magana, [facility] [Primary Care Provider] - Discharge Diet: As Directed Discharge Activity: Limit activity as instructed Patient Instructions: Opioid Safety Activity Restrictions/Additional Instructions: Thank you for visiting the emergency department. You were seen and evaluated for postoperative eye pain. This was evaluated by ophthalmology and we are pleased that you had improvement. Please follow-up as directed by ophthalmology and use all eyedrops as directed. I will prescribe oxycodone use this cautiously as discussed. Return to the emergency department for anything that you are concerned about and feel needs emergency department evaluation. [facility] [address] [place] [id number] Coding Level of Care Code ED Provider Relations Specialist for Jenny Velasquez
[2022-08-06] MEDS: fentaNYL 50 mcg/mL INJ 2mL IVP (21:54)
[2022-08-06] MEDS: acetaZOLAMIDE 250 mg Tablet PO (22:49)
[2022-08-06] MEDS: dorzolamide/timolol Op Soln 10 mL Btl 1 DROP EYE-RIGHT ×2 (22:55→23:07)
[2022-08-07] MEDS: prednisoLONE 1% Op Susp 5 mL Btl 1 DROP EYE-RIGHT (00:01)
[2022-08-07] MEDS: ondansetron 2 mg/ML SDV 2 mL 4 MG IVP (00:01)
[2022-08-07] MEDS: oxyCODONE 5 mg IR Tab/Cap 10 MG PO (00:01)
[2022-08-07] MEDS: oxyCODONE 5 mg IR Tab/Cap PO (00:01)
[2022-08-07] MEDS: ciprofloxacin 0.3% Op Soln 2.5 mL Btl 1 DROP EYE-RIGHT (00:02)
[2022-08-07 00:35] VITALS: BP 122/84; PULSE 82; RESP 16; O2SAT 97
== END 2022-08-07 00:36 | disposition home or self-care (01) ==
PROVIDERS: Emergency Provider Emergency Medicine; PCP Nurse Practitioner
DX: H57.11 Ocular pain, right eye (principal); H40.051 Ocular hypertension, right eye; F17.290 Nicotine dependence, other tobacco product, uncomplicated
CPT/HCPCS: 96374; 96375; 99284; J2405; J3010

== ENCOUNTER 2022-09-07 10:23 | Outpatient (CLI) | payer OTHER, SELFPAY ==
--- NOTE | 2022-09-07 10:00 | NM_ITS ---
WS: [id number] NUCLEAR MEDICINE HIDA SCAN WITH GALLBLADDER EJECTION FRACTION HISTORY: abd pain COMPARISON: Gallbladder ultrasound 07/06/2012 TECHNIQUE: The patient was intravenously injected with 6. mCi of TC99m Mebrofenin. Immediate imaging over the right upper quadrant was followed by 5 minute image and additional images for a total of 60 minutes. Normal uptake of radiotracer throughout the liver. Activity identified in the gallbladder at 40 minutes and well distended by 60 minutes. Activity in the proximal small bowel was seen by 15 minutes. Good washout of the radiotracer from the liver by 60 minutes. The patient then drank 8 ounces of Ensure Plus. Ejection fraction at 60 minutes was 76%. Normal GB ej ection fraction is 35-75%. Post fatty meal symptoms: None. NM/NM hepatobiliary w phar* [id number] IMPRESSION: 1. Normal HIDA scan. 2. Normal gallbladder ejection fraction.
== END 2022-09-07 10:24 | disposition home or self-care (01) ==
LOC: RAD 10:24
PROVIDERS: PCP Nurse Practitioner; Visit Provider Surgery
DX: R10.9 Unspecified abdominal pain (principal)
CPT/HCPCS: 78227; A9537

== ENCOUNTER → 2022-11-01 08:44 | Outpatient (BNVA) | payer OTHER, SELFPAY | PROVIDERS: PCP Nurse Practitioner; Visit Provider Urology | DX: N30.20 Other chronic cystitis without hematuria (principal); N39.41 Urge incontinence | CPT/HCPCS: 81003 ==

== ENCOUNTER → 2023-04-20 12:19 | Outpatient (BNVA) | payer OTHER, SELFPAY | PROVIDERS: PCP Nurse Practitioner; Visit Provider Nurse Practitioner Family | DX: E04.9 Nontoxic goiter, unspecified (principal); R53.83 Other fatigue; R63.4 Abnormal weight loss; Z13.6 Encounter for screening for cardiovascular disorders | CPT/HCPCS: 80053; 80061; 82306; 82607; 83735; 84443; 85025; 85651; 86140 ==

== ENCOUNTER 2023-04-21 12:46 | Outpatient (CLI) | payer OTHER, SELFPAY ==
--- NOTE | 2023-04-21 15:15 | US_ITS ---
WS: [id number] THYROID ULTRASOUND HISTORY: E04.9 - Nontoxic goiter, unspecified COMPARISON: 06/04/2013 Right lobe: 1.1 cm x 1.6 cm x 3.9 cm (w x ap x l). Volume: 3.6 cm3. Normal size and echotexture. No significant are dominant nodules are present. Left lobe: 1.2 cm x 1.1 cm x 3.2 cm (w x ap x l). Volume: 2.2 cm3. Mild atrophy of the LEFT thyroid lobe. No mass or nodule. Isthmus: 0.2 cm. IMPRESSION: Normal thyroid ultrasound.
== END 2023-04-21 12:47 | disposition home or self-care (01) ==
LOC: RAD 12:46
PROVIDERS: PCP Nurse Practitioner; Visit Provider Nurse Practitioner Family
DX: E04.9 Nontoxic goiter, unspecified (principal)
CPT/HCPCS: 76536

== ENCOUNTER 2023-04-25 16:13 | Outpatient (CLI) | payer OTHER, SELFPAY ==
--- NOTE | 2023-04-25 17:15 | CT_ITS ---
WS: [id number] CT CHEST, ABDOMEN AND PELVIS WITH CONTRAST HISTORY: R53.83 - Other fatigue TECHNIQUE: Contiguous 5 mm axial imaging performed through the chest, abdomen and pelvis with IV cont rast, oral contrast has been provided. Coronal and sagittal reformats chest. Coronal and sagittal ref ormats through the abdomen and pelvis. All CT scans at [facility] use at least one of these d ose optimization techniques: automated exposure control; mA and/or kV adjustment per patient size (in cludes targeted exams where dose is matched to clinical indication); or iterative reconstruction. CONTRAST: Omnipaque 350; 100 mL IV. DLP: 589.45 mGy.cm COMPARISON: 12/16/2021 and 09/09/[address]: Mild hazy attenuation in the periphery of the upper and lower lung brooke. No mass or pulmo nary nodule. No pneumonia. No pericardial or pleural effusions. Normal size aorta and pulmonary arter y. The heart is normal size. No mediastinal or hilar adenopathy. Abdomen CT: Liver, spleen and gallbladder are normal. No bile duct dilatation. Normal pancreas. No pa ncreatic duct enlargement. Normal RIGHT adrenal gland. Stable LEFT adrenal adenoma 2.2 cm. No renal o bstruction or solid mass. Mild atherosclerosis aorta. Stomach is moderately distended with contrast and food products. No small bowel obstruction. Prior ap pendectomy. Mild constipation. Mild diverticular disease in the distal colon with no acute diverticul itis. No ascites or adenopathy. Pelvic CT: Prior hysterectomy. No free fluid or adenopathy. Normal urinary bladder. Reidentified is the T12 compression fracture by approximately 20%. IMPRESSION: 1. Chronic emphysema with mild interstitial thickening. Probably related to patient's smoking histor y. 2. No adenopathy in the chest, abdomen or pelvis. 3. Prior hysterectomy and appendectomy. 4. Stable LEFT adrenal adenoma. 5. Mild diffuse constipation and a few distal colonic diverticula. No acute diverticulitis. 6. Stable T12 compression fracture.
[2023-04-25] MEDS: iohexol 350 mg/mL 500 mL Btl (per mL) PO (17:28)
[2023-04-25] MEDS: iohexol 350 mg/mL 500 mL Btl (per mL) IV (17:29)
== END 2023-04-25 16:14 | disposition home or self-care (01) ==
LOC: RAD 16:13
PROVIDERS: PCP Nurse Practitioner; Visit Provider Nurse Practitioner Family
DX: R53.83 Other fatigue (principal); R63.4 Abnormal weight loss; J43.9 Emphysema, unspecified; Z90.710 Acquired absence of both cervix and uterus; Z90.89 Acquired absence of other organs; D35.02 Benign neoplasm of left adrenal gland; K59.00 Constipation, unspecified; Z87.891 Personal history of nicotine dependence
CPT/HCPCS: 71260; 74177; Q9967

== ENCOUNTER → 2023-06-07 15:39 | Outpatient (BNVA) | payer OTHER, SELFPAY | PROVIDERS: PCP Nurse Practitioner; Visit Provider Orthopaedic Surgery | DX: S22.080A Wedge compression fracture of T11-T12 vertebra, initial encounter for closed fracture (principal); X58.XXXA Exposure to other specified factors, initial encounter; M48.062 Spinal stenosis, lumbar region with neurogenic claudication | CPT/HCPCS: 72040; 72070 ==

== ENCOUNTER 2023-06-13 08:17 | Day surgery (SDC) | payer OTHER, SELFPAY ==
[2023-06-13] VITALS (17 sets, daily range): BP systolic 117–177; BP diastolic 77–103; PULSE 89–118; RESP 14–20; TEMP 36.1–36.3; O2SAT 92–99; BMI 20.5
--- NOTE | 2023-06-13 08:41 | ANES.PREANE2 ---
Pre-Anesthetic Assessment Height/Weight: Height 1.73 m Operation Date: 06/13/23 10:00 [place] Procedures p [address] lap left inguinal with mesh K40.90(Left) - Joel Hicks DO Familial anesthetic complications: PONV, sensitive to sedatives, spefically asking to go light on the anesthesia d/t long PACU stays Was Beta Colt taken within 24 hours: N/A Was Clonidine taken within 24 hours: N/A Last intake: > 8hrs Social Tobacco and No alcohol Exam alert, oriented x 3, clear to auscultation bilaterally and regular rate & rhythm Airway Mallampati: Class II Dentition: full Comments: Comments: TMJ Pulmonary interstitial lung disease (L worse than R), but not on oxygen, no hospital admissions, no sob/lawrence) GI Gastroesophageal Reflux Disease Anesthetic Plan ASA status: 3 Anesthesia: General Risk of > 500 ml blood loss (7ml/kg in children): No Medications/Allergies Home Medications Medication Instructions Recorded Confirmed Last Taken Type ibuprofen 800 mg tablet 800 mg PO Q8H PRN pain #20 tabs 11/13/21 06/10/23 06/09/23 Rx pantoprazole 40 mg tablet,delayed 40 mg PO DAILY 06/10/23 06/10/23 06/13/23 06:00 History release dimenhydrinate 25 mg chewable 25 mg PO DIRECTED PRN Nausea 06/13/23 06/13/23 06/13/23 06:30 History tablet (Dramamine) methenamine hippurate 1 gram 1 g PO BID Recurrent UTI 06/13/23 06/10/23 06/13/23 06:00 History tablet (Hiprex) prednisone 20 mg tablet 20 mg PO DAILY PRN Pain, Mild 06/13/23 06/10/23 Unknown History Allergies Allergy/AdvReac Type Severity Reaction Status Date / Time Penicillins Allergy Severe ALGY-Hives Verified 06/07/23 15:25 morphine Allergy nausea Verified 06/07/23 15:25 [facility] Anesthesia Medical History Urgency incontinence Migraines GERD (gastroesophageal reflux disease) History of colon polyps Rib fracture Microscopic hematuria Recurrent UTI Symptoms consistent with longstanding history of chronic cystitis. Prompt breakthrough after completing antibiotics. Surgical History History of esophagogastroduodenoscopy (EGD) Hx of colonoscopy with polypectomy 10 yrs ago Status post colonoscopy H/O wrist surgery S/P appendectomy S/P hysterectomy Family History Father No problems noted. Mother , 32 Cancer Brain Social History Smoking and tobacco/nicotine status: current every day tobacco/nicotine user e-cigarettes E-Cigarette Details: vaporizer device and with nicotine E-cig/vape details: Hx of 0.5 PPD x 47 Years Quit status (tobacco/nicotine): considering quitting Second hand smoke exposure: Yes Alcohol intake: never Substance/Drug Use: never Lives independently: Yes Household members: spouse Marital status: / Current occupational status: retired Do you think of yourself as: Straight/Heterosexual Current gender identity: Female Data Anesthesia Cardiac Studies: Sestamibi Stress Test (Cardiology) 05/12/20
[2023-06-13] MEDS: sodium chloride 0.9% 1,000 ML 30 ML IV (08:49)
[2023-06-13] MEDS: vancomycin 1,500 MG/300 ML PIGGYBACK 200 MG IV (09:46)
--- NOTE | 2023-06-13 09:58 | W.PM.OPSUD ---
Surgery/Procedure H&P Update DATE OF PROCEDURE: June 13, 2023 DATE H&P PERFORMED: 05/17/23 H&P UPDATE INFORMATION: I have reviewed H&P completed within last 30 days, I have examined patient prior to procedure and No changes to prior documentation PLANNED PROCEDURE: Operation Date: 06/13/23 10:00 Proposed Procedures p 05178 lap left inguinal with mesh K40.90(Left) - Joel Hicks DO
[2023-06-13] MEDS: lidocaine-epi 2% 20 mL INJ INJECTION (10:58)
--- NOTE | 2023-06-13 11:16 | P.OP_ITS ---
Operative Report Date of procedure: June 13, 2023 Pre-op diagnosis: Left inguinal hernia Post-op diagnosis: Left inguinal and femoral hernia Procedure done: Laparoscopic repair of left inguinal and femoral hernias with mesh Implants: Extra-large 3D max Bard mesh Specimens removed/disposition: None Surgeon: Joel Hicks DO Anesthesia: General Estimated blood loss (mL): 5 Complications: None apparent Brief History: Is a very pleasant 63-year-old female who presented to my office with left groin pain and bulge. She was diagnosed with a left inguinal hernia. Laparoscopic repair with mesh was indicated. The risk and benefits were explained and documented. Procedure: Patient was wheeled into the operative room and placed on the OR table in a supine position. Abdomen was inspected prepped and draped in usual sterile fashion. Time-out was performed and all present were in agreement. A 15 blade scalpel was used to make 1.2 centimeter incision infraumbilically. Combination of sharp and blunt dissection was performed down to the anterior rectus sheath which was opened sharply. The dissecting balloon was then inserted into the space of Retzius and blown up. We put the camera into the port and identified that we were in the correct space. I then placed 2 5 millimeter trocars suprapubically in the midline. I then used endokitners to bluntly dissect in the space of Retzius out laterally. A direct left inguinal hernia and left femoral hernia, both containing preperitoneal fat, were identified on the left.. Blunt dissection was performed to dissect down the peritoneal fat. An extra- large left 3D max Bard mesh was then placed into the space of Retzius. The mesh was unrolled and tacked once medially at the pubic bone. The mesh laid out nicely over the defects. I watched the hernia sac remained in place as ins ufflation was removed. Incisions were closed with 4-0 Monocryl in a subcuticular interrupted fashion. Skin glue was applied. Patient tolerated the procedure well.
[2023-06-13] MEDS: diphenhydrAMINE 50 mg/mL SDV 1mL 12.5 MG IVP (11:45)
[2023-06-13] MEDS: metoclopramide 5 mg/mL SDV 2 mL 10 MG (11:45)
[2023-06-13] MEDS: scopolamine 1.5 Patch 1 PATCH TRANSDERMA (11:48)
[2023-06-13] MEDS: fentaNYL 50 mcg/mL INJ 2mL IVP (11:54)
--- NOTE | 2023-06-13 12:30 | ANE.PACU2 ---
Inpatient post-anesthesia follow up: Airway intact: Yes Vital signs: Temperature 97 F Pulse Rate 94 Respiratory Rate 18 Blood Pressure 132/77 Pulse Oximetry 94 Oxygen Delivery Me thod Room Air Oxygen Flow Rate 6 Fraction of Inspir ed Oxygen Hydration adequate: Yes Nausea and vomiting: No Pain level: 1 Mental status: Baseline
[2023-06-13] MEDS: sodium chloride 0.9% 1,000 ML 100 ML IV (12:51)
[2023-06-13] MEDS: HYDROcodone-acetaminophen 7.5-325 mg Tablet 1 TAB PO (13:05)
== END 2023-06-13 13:52 | disposition home or self-care (01) ==
PROVIDERS: PCP Nurse Practitioner; Visit Provider Surgery
PROC: (CPT 49650; principal; 2023-06-13 09:50)
DX: K40.90 Unilateral inguinal hernia, without obstruction or gangrene, not specified as recurrent (principal); K41.90 Unilateral femoral hernia, without obstruction or gangrene, not specified as recurrent; K21.9 Gastro-esophageal reflux disease without esophagitis; Z79.52 Long term (current) use of systemic steroids; F17.290 Nicotine dependence, other tobacco product, uncomplicated
CPT/HCPCS: 49650; 49659; 51702; J1100; J1200; J2405; J2704; J2765; J3010; J3370; J3490; J7030

== ENCOUNTER → 2023-07-12 15:55 | Outpatient (BNVA) | payer OTHER, SELFPAY | PROVIDERS: PCP Nurse Practitioner; Referring Provider Nurse Practitioner Family; Visit Provider Internal Medicine Cardiovascular Disease | DX: R07.9 Chest pain, unspecified (principal); I45.10 Unspecified right bundle-branch block | CPT/HCPCS: 93005 ==

== ENCOUNTER 2023-07-18 08:35 | Outpatient (CLI) | payer OTHER, SELFPAY ==
--- NOTE | 2023-07-18 08:45 | MR_ITS ---
WS: [id number] MRI THORACIC SPINE without contrast. HISTORY: back pain COMPARISON: 01/19/2022 TECHNIQUE: Multiplanar sequences are performed in sagittal and axial planes. Straightening with mild curvature of the thoracic spine. There is a small amount of marrow edema tomasa g the anterior inferior endplate of T12. There is also a small amount of increased signal in the conc ave deformity of the central T12 vertebral body endplate. Prior T12 compression fracture has been doc umented, 01/19/2022. There is new marrow edema within T12 with mild progression of the fracture. The na rrowest part of the vertebral body has decreased from 9.9 to 6.4 mm. The anterior vertebral body is d ecreased from 1.7 to 1.5 cm. There is very minimal retropulsion of the vertebral body. There is additional very mild reactive marrow edema along the adjacent endplates of T9 and T10 and al so within the anterior inferior T10 vertebral body. No additional fractures. Signal within the cord i s normal. T1-2: Normal. T2-3: Mild bilateral facet arthritis. T3-4: Mild facet arthritis. T4-5: Mild facet arthritis. T5-6: Mild bilateral foraminal narrowing and facet arthritis. T6-7: Mild bilateral facet arthritis and foraminal narrowing. T7-8: Facet arthritis. T8-9: Mild annular disc bulging and facet arthritis. T9-10: Central disc protrusion with bilateral facet arthritis. Mild bilateral foraminal narrowing. T10-11: Mild foraminal narrowing. T11-12: Diffuse annular disc bulging and osteophytic ridging. Ligamentum flavum and facet arthritis. Bilateral foraminal stenosis, mild. LEFT adrenal mass 2.1 x 2.5 cm has been previously described as an adenoma. IMPRESSION: 1. New very mild acute marrow edema in the T12 vertebral body superimposed on a chronic fracture. Mi ld acute progression of the T12 fracture since 01/19/2022. No retropulsion. 2. No new additional fractures. 3. Multilevel mild facet arthritis. Most significant facet joint arthritis at T9-10.
--- NOTE | 2023-07-18 09:30 | MR_ITS ---
WS: [id number] MRI LUMBAR SPINE NONCONTRAST HISTORY: lumbar pain, LEFT hip pain. COMPARISON: 01/19/2022 MRI lumbar spine, TECHNIQUE: Sagittal and axial multisequence imaging is submitted. No acute lumbar spine fracture. Very mild enthesitis at L2, L3 and L4. Disc bases are narrowed and desiccated, most significant narrowing at L2-3. Conus terminates normally at L1-2 disc level. T12 compression fracture described on the thoracic MRI performed on the same day. Acute on chronic fr acture. L1-L2: Mild annular disc bulging and osteophytic ridging. Ligamentum flavum hypertrophy, RIGHT greate r than LEFT. Mild subarticular recess encroachment. L2-L3: Mild osteophytic ridging and annular disc bulging and facet arthritis. Mild subarticular reces s encroachment and mild foraminal narrowing. L3-L4: Mild annular disc bulging. Shallow LEFT foraminal disc protrusion. No significant contact on t he nerve roots. No progression since the prior study. L4-L5: Mild annular disc bulging and facet and ligamentum flavum hypertrophy. Small amount of fluid i n the facet joints. Mild encroachment upon the subarticular recesses. There is very slight disc conta ct on the traversing L5 nerve roots, RIGHT greater than LEFT. L5-S1: Mild annular disc bulging with disc osteophyte extending into the LEFT foramen causing a mild to moderate stenosis. Smaller disc osteophyte on the RIGHT. Disc osteophyte is contacting the exiting LEFT L5 nerve root. Mild disc encroachment upon the S1 nerve roots in the subarticular recesses. Paravertebral soft tissues are normal. IMPRESSION: 1. No high-grade central or foraminal stenosis. Very minimal progression of degenerative disc diseas e and stenosis since the prior study. 2. Mild to moderate LEFT foraminal stenosis at L5-S1. Disc osteophyte extending into the foramen wit h mild contact on the exiting LEFT L5 nerve root. Minimal progression since the prior study. 3. There is mild disc encroachment upon the subarticular recesses at L1-2, L2-3, L4-5 and L5-S1.
== END 2023-07-18 08:36 | disposition home or self-care (01) ==
LOC: RAD 08:36
PROVIDERS: PCP Nurse Practitioner; Visit Provider Orthopaedic Surgery
DX: M47.814 Spondylosis without myelopathy or radiculopathy, thoracic region (principal); M48.54XA Collapsed vertebra, not elsewhere classified, thoracic region, initial encounter for fracture; M48.07 Spinal stenosis, lumbosacral region; M25.78 Osteophyte, vertebrae
CPT/HCPCS: 72146; 72148

== ENCOUNTER 2023-07-22 13:55 | Outpatient (CLI) | payer OTHER, SELFPAY ==
--- NOTE | 2023-07-22 14:00 | USCV_ITS ---
Nupur Rodriguez Age: 63 Gender: F : 1960 Exam Date: 07/22/2023 14:25 Ordering Phys: Lobo Rashid MD ([email or web address]) Technologist: CT [place] [facility] [place]: cp BP: 120 / 76 HR: Rhythm: Sinus Technical Quality: Good MEASUREMENTS (Male / Female) Normal Values 2D ECHO LVOT Diameter 2.1 cm LV Ejection Fraction MOD 2C 59.6 % LV Ejection Fraction 2C AL 60.3 % LA Diameter 2.5 cm RA Systolic Volume 4C AL 33.2 ml RA Systolic Volume 4C MOD 31.0 ml Aorta at Sinotubular Diameter 2.5 cm IVC Diameter 1.6 cm M-MODE LA Ao Ratio MM 0.8 AV Cusp Separation MM 2.2 cm DOPPLER AV Peak Velocity 115.0 cm/s LVOT Peak Velocity 106.0 cm/s AV Area Cont Eq vti 2.9 cm squared AV Area Cont Eq pk 3.1 cm squared MV Peak Velocity 73.0 cm/s MV Area PHT 3.3 cm squared Mitral E to A Ratio 0.9 TR Peak Velocity 149.0 cm/s TR Peak Gradient 8.9 mmHg TV Peak E Velocity 82.0 cm/s Right Atrial Pressure 3.0 mmHg Pulmonary Artery Systolic Pressu 11.9 mmHg PV Peak Velocity 98.0 cm/s FINDINGS Left Ventricle Normal left ventricular size and systolic function, EF 60%.no regional wall motion abnormalities. Right Ventricle The right ventricle is normal in size and function. Right Atrium The right atrium is normal in size. 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 Aortic Valve Mild aortic valve regurgitation. Tricuspid Valve No gross abnormalities noted Pulmonic Valve Mild pulmonary valve regurgitation. Pericardium No pericardial effusion. Aorta Normal ascending aorta dimension. IVC The inferior vena cava appears normal. CONCLUSIONS Normal left ventricular size and systolic function, EF 60%. No regional wall motion abnormalities. 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 Mild aortic valve regurgitation. Trace mitral valve regurgitation. There is no pericardial effusion. There are no intracardiac masses. No similar previous studies are available for comparison Dr Lobo Rashid MD [facility] (Electronically Signed) Final Date: 24 July 2023 20:39 S
--- NOTE | 2023-07-22 14:45 | USCV_ITS ---
Nupur Rodriguez Age: 63 Gender: F : 1960 Exam Date: 07/22/2023 15:08 Ordering Phys: Lobo Rashid MD ([email or web address]) Technologist: CT [place] [facility] [place]: claudication Risk Factors: Previous Vascular Surgery: RIGHT LEFT BP: 126.0 / 86.00 BP: 130.0/ 79.00 0 0 Waveform Velocity (cm/s) Velocity (cm/s) Waveform Triphasic 81.0 Iliac Prox 79.0 Triphasic Triphasic 63.0 Iliac Mid 70.0 Triphasic Triphasic 68.0 Iliac Distal 106.0 Triphasic Triphasic 59.0 PERFECT BINDER OPERATOR 115.0 Triphasic Triphasic 115.0 SFA Prox 109.0 Triphasic Triphasic 78.0 SFA Mid 103.0 Triphasic Triphasic 67.0 SFA Dist 72.0 Triphasic Triphasic 68.0 POP 74.0 Triphasic Triphasic 74.0 HOTEL ATTENDANT 66.0 Triphasic Triphasic 63.0 DPA 87.0 Triphasic 1.0 YONATAN 1.0 FINDINGS Resting YONATAN 1.0 bilaterally Normal arterial Doppler waveforms and flow velocities Minimal intimal thickening bilaterally in the arteries in the iliac and femoral arteries No unstable plaques or lesions noted CONCLUSIONS Normal resting ABIs bilaterally Minimal intimal thickening bilaterally No significant arterial obstruction, based on the above findings Dr Lobo Rashid MD [facility] (Electronically Signed) Final Date: 24 July 2023 20:45 S
== END 2023-07-22 13:56 | disposition home or self-care (01) ==
LOC: RAD 13:55
PROVIDERS: PCP Nurse Practitioner; Visit Provider Internal Medicine Cardiovascular Disease
DX: I35.1 Nonrheumatic aortic (valve) insufficiency (principal); I73.9 Peripheral vascular disease, unspecified
CPT/HCPCS: 93306; 93925

== ENCOUNTER 2023-08-01 08:55 | Outpatient (CLI) | payer OTHER, SELFPAY ==
--- NOTE | 2023-08-01 | ECG_ITS ---
[facility] Test Date: 2023-08-01 Pat Name: Nupur Rodriguez Department: Room: Gender: Female Location Director: Collette Knowles : 1960 Requested By: Lobo Rashid Order Number: [id number] Erin MD: Lobo Rashid M.D. Interpretive Statements NAME OF STUDY: EXERCISE SESTAMIBI STRESS TEST INDICATION: Chest Pain, PROCEDURE: The baseline electrocardiogram showed normal sinus rhythm with normal ST-Ts. Incomplete right bundle branch block pattern.At the baseline, the patient's blood pressure was 129/80 mm Hg with a heart rate of 97. The patient exercised for 7 minutes and 58-second on a standard Dalton protocol. Patient attained a maximum heart rate of 140 beats per minute(89% of the maximum predicted heart rate) with a blood pressure at the peak exercise of 160/77 mm Hg. The EKG at the peak exercise revealed no significant changes. Patient did not have any chest pain or any significant arrhythmis with the exercise. Occasional PVCs were noted with the peak exercise Sestamibi was injected 1 minute prior to the peak exercise During the recovery phase, there were no new changes. Blood pressure at the end of the recovery phase was 128/90 mm Hg with a heart rate of 100 per minute. CONCLUSION: 1. No significant EKG changes with the [treadmill exercise 2. No exercise-induced chest pain or significant cardiac arrhythmia 3. Fair exercise tolerance, attained a maximum of 10.2 METs 4. Sestamibi/Sestamibi perfusion results pending; see separate report. Electronically Signed On 08-07-2023 19:42:37 CDT by Lobo Rashid M.D. [email or web address]
[2023-08-01 09:26] VITALS: BMI 21.1
--- NOTE | 2023-08-01 09:26 | NMCV_ITS ---
NM mike perf SPECT r/s* [id number] Nupur Rodriguez Age: 63 Gender: F : 1960 Exam Date: 08/01/2023 09:45 Ordering Phys: Lobo Rashid MD ([email or web address]) Technologist: ARNOL Navarro Exam Location: [facility] Indications: CORONARY ANGIOPLASTY STATUS STRESS TEST Please see separate stress test report in [facility] for full findings IMAGE PROTOCOL Rest/Stress 1 Exercise Day Radiopharmaceutical Dose (mCi) Administration Site Administered by Rest: Tc-99m 10.8 IV ARNOL Haley Sestamibi Stress:Tc-99m 32.6 IV ARNOL Haley Sestamibi Rest: 01-Aug-2023 60 Discovery 630 Stress: 01-Aug-2023 15 Discovery 630 Radiopharmaceutical was injected at 86 % maximum heart rate. Images obtained in supine and prone position. SPECT RESULTS Technical Quality: Excellent Raw Data Analysis: Normal Image Corrections: No attenuation or motion correction applied Summed Stress Score: 1 Summed Rest Score: 2 Summed Difference Score: 0 PERFUSION FINDINGS Small areas of slightly decreased tracer uptake in the inferior wall region with no significant reversibility FUNCTIONAL RESULTS (calculated via Gated SPECT) Stress Image LV EF (%): 84 Stress EDV (mL):74 TID: 0.87 Stress ESV (mL):12 FUNCTIONAL FINDINGS: Segmental wall motion analysis revealing no gross wall motion abnormalities IMPRESSIONS 1. Myocardial perfusion imaging revealing small area of persistent decreased tracer uptake involving the inferior wall region was likely represent attrition artifact. 2. Normal LV ejection fraction of 84%. 3. LV wall motion analysis revealing no gross wall motion abnormalities. 4. Normal LV volume Low probability for coronary ischemia, based on the above findings Dr Lobo Rashid MD [facility] (Electronically Signed) Final Date: 01 August 2023 22:55 S
[2023-08-01 10:45] VITALS: BP 128/91; PULSE 100
== END 2023-08-01 08:56 | disposition home or self-care (01) ==
LOC: CDL 08:56
PROVIDERS: PCP Nurse Practitioner; Visit Provider Internal Medicine Cardiovascular Disease
DX: Z98.61 Coronary angioplasty status (principal)
CPT/HCPCS: 36415; 78452; 93017; A9500

== ENCOUNTER 2023-08-26 14:03 | Outpatient (CLI) | payer OTHER, SELFPAY ==
--- NOTE | 2023-08-26 14:15 | US_ITS ---
WS: [id number] ULTRASOUND SOFT TISSUES LEFT groin HISTORY: Left groin pain, hernia repair. Pain. COMPARISON: None available. TECHNIQUE: 2-D and color Doppler imaging is submitted. Ultrasound in the region of the LEFT groin at the area of pain. There is no mass identified. No peris talsing loop of bowel or omental hernia. No abnormality demonstrated with Valsalva maneuver. IMPRESSION: Negative ultrasound LEFT groin.
== END 2023-08-26 14:04 | disposition home or self-care (01) ==
LOC: RAD 14:04
PROVIDERS: PCP Nurse Practitioner Family; Visit Provider Nurse Practitioner Family
DX: R10.32 Left lower quadrant pain (principal)
CPT/HCPCS: 76882

== ENCOUNTER 2023-10-06 08:58 | Outpatient (CLI) | payer OTHER, SELFPAY ==
--- NOTE | 2023-10-06 09:00 | CT_ITS ---
WS: [id number] CT PELVIS NONCONTRAST HISTORY: R10.32 - Left lower quadrant pain TECHNIQUE: Contiguous imaging is performed of the pelvis without contrast. Coronal and sagittal refor mats are reviewed. All CT scans at [facility] use at least one of these dose optimization hannah hniques: automated exposure control; mA and/or kV adjustment per patient size (includes targeted exam s where dose is matched to clinical indication); or iterative reconstruction. DLP: 208.90 mGy.cm COMPARISON: 04/25/2023 Bones are intact. No fractures. Normal SI joints. Normal hip joints. No free fluid or adenopathy within the pelvis. Calcification in the distal aorta. The appendix has be en removed. Mild constipation in the distal colon. Moderate distal colonic diverticular burden withou t acute diverticulitis. No inguinal hernia. There is no mass or significant abnormality in the inguinal regions at the site o f pain. CT/CT pelvis wo con [id number] IMPRESSION: 1. No CT abnormality in the inguinal regions at the site of pain. No recurrent hernia. 2. Moderate distal colonic diverticular burden. No acute diverticulitis.
== END 2023-10-06 08:59 | disposition home or self-care (01) ==
PROVIDERS: PCP Nurse Practitioner Family; Visit Provider Nurse Practitioner Family
DX: R10.32 Left lower quadrant pain (principal); K57.30 Diverticulosis of large intestine without perforation or abscess without bleeding
CPT/HCPCS: 72192

== ENCOUNTER → 2023-10-17 09:57 | Outpatient (BNVA) | payer OTHER, SELFPAY | PROVIDERS: PCP Nurse Practitioner Family; Visit Provider Nurse Practitioner Family | DX: E53.8 Deficiency of other specified B group vitamins (principal); R25.2 Cramp and spasm; E78.5 Hyperlipidemia, unspecified | CPT/HCPCS: 80053; 80061; 82306; 82607; 83735; 85025 ==

== ENCOUNTER 2023-11-03 06:59 | Emergency (ER) | payer OTHER, SELFPAY ==
[2023-11-03 07:01] VITALS: BP 116/60; PULSE 83; RESP 18; TEMP 36.6; O2SAT 100; BMI 19.9
--- NOTE | 2023-11-03 07:25 | ED_ITS ---
HPI - Extremity Problem 2 General: Chief complaint: Extremity Problem,Nontraumatic Stated complaint: femoral pain Time Seen by Provider: 11/03/23 07:05 Source: patient Mode of arrival: EMS History of Present Illness: 63-year-old female presents to the emerg ency room with complaint of leg pain. She states she began to have pain initially seem to be in the right groin yesterday afternoon around 1:00 it was worse when she was up better when she is laying down she started walking mowed her lawn it fever improved some then worsened again and began to radiate from her groin down the side of her leg across the top of her knee all the way into her foot. Persisted throughout the night and worsened to the point where she eventually called EMS. She does have a history of chronic back problems and has had lumbar radiculopathy in the past. She has not had any trauma or recent injury. She does have a history of a T12 compression fracture in the past. MD Complaint: extremity pain Onset (ago): day(s) (1) Pain Consistency: constant Quality: sharp Radiation: distal Relieving factors: other (Supine) Exacerbating factors: weight bearing and walking Associated symptoms: Deny chest pain, fever(s) or rash Review of Systems 2 Const: Denies: fever(s) or chills Card: Denies: chest pain Resp: Denies: dyspnea GI: Denies: abdominal pain : Denies: dysuria, urinary frequency or urinary urgency Musc: Reports: extremity pain; Denies: neck pain or back pain Skin/Breast: Denies: rash PFSH ED 2 PFSH: Medical History Urgency incontinence Migraines GERD (gastroesophageal reflux disease) History of colon polyps Rib fracture Microscopic hematuria Recurrent UTI Symptoms consistent with longstanding history of chronic cystitis. Prompt breakthrough after completing antibiotics. Surgical History S/P left inguinal hernia repair History of esophagogastroduodenoscopy (EGD) Hx of colonoscopy with polypectomy 10 yrs ago Status post colonoscopy H/O wrist surgery S/P appendectomy S/P hysterectomy Family History Father No problems noted. Mother , 32 Cancer Brain Social History Smoking and tobacco/nicotine status: current every day tobacco/nicotine user e- cigarettes E-Cigarette Details: vaporizer device and with nicotine E-cig/vape details: Hx of 0.5 PPD x 47 Years Quit status (tobacco/nicotine): considering quitting Second hand smoke exposure: Yes Alcohol intake: never Substance/Drug Use: never Lives independently: Yes Household members: spouse Marital status: / Current occupational status: retired Do you think of yourself as: Straight/Heterosexual Current gender identity: Female Physical Exam 2 Const: GENERAL APPEARANCE: cooperative and comfortable O RIENTATION/CONSCIOUSNESS: Yes awake, Yes oriented to person, Yes oriented to place and Yes oriented to time HENMT: COMMON NORMALS: normocephalic, atraumatic and hearing grossly normal bilaterally HEAD & SCALP: normocephalic and atraumatic Resp: COMMON NORMALS: normal respiratory effort, No retractions, No use of accessory muscles and clear to auscultation bilaterally AUSCULTATION: clear to auscultation bilaterally Cardio: COMMON NORMALS: regular rate, regular rhythm and No murmurs present (Cardio) RATE: regular rate RHYTHM: regular rhythm GI: COMMON NORMALS: Soft to palpation and No hepatosplenomegaly present A USCULTATION: Yes normoactive bowel sounds PALPATION: Yes Soft to palpation, No Tenderness to palpation present (GI), No Guarding due to palpation present (GI) and Yes No hepatosplenomegaly present Extremity: COMMON NORMALS: normal to inspection, capillary refill normal, no clubbing, cyanosis or edema, no calf tenderness and no pedal edema Neuro: SENSORIUM/ORIENTATION: Yes oriented to person, Yes oriented to place and Yes oriented to time OTHER: Deep tendon reflexes at the patellar tendon on the right +104. Dorsum plantarflex strength 5 of 5 but does elicit pain. Attempted to straight leg raising but elevating the leg even a little off the bed causes severe pain in worsening of her radicular symptoms into the right leg. No loss of sensation to the lower extremity. Skin: COMMON NORMALS: no rashes or lesions noted GENERAL SKIN EXAM: no rashes or lesions noted Course 2 Vital Signs: Vital signs: Vital Signs Temperature 97.9 F 11/03/23 07:01 Pulse Rate 87 11/03/23 11:22 Respiratory Rate 17 11/03/23 08:33 Blood Pressure 128/79 11/03/23 10:30 Pulse Oximetry 95 11/03/23 11:22 Oxygen Delivery Me thod Nasal Cannula 11/03/23 09:00 Oxygen Flow Rate 2 11/03/23 09:00 MDM - Extremity (Nontraumatic) Medical Decision Making Radicular back pain. She previously had a had a T12 compression fracture no need new compression fractures. With medication she is improved. She did briefly require some oxygen supplementation because the Benadryl and morphine that improved and when she was awake and standing had no further problems with oxygen sats. Will discharge patient home with hydrocodone tizanidine steroid taper and diclofenac. Follow-up with her primary care physician if she is not improving then she may need further evaluation including possibly advanced imaging Medical Records I reviewed the patient's medical records. Lab Data I reviewed the patient's lab results. 11/03/23 07:53 11/03/23 07:53 Radiology Impressions Lumbar Spine CT 11/03/23 07:31 IMPRESSION: Degenerative changes with stable left L5 neural foraminal narrowing. Laboratory Results WBC 14.28 10^3/uL (3.29-11.43) H 11/03/23 07:53 RBC 3.68 10^6/uL (3.85-5.65) L 11/03/23 07:53 Hgb 12.10 g/dL (11.27-16.99) 11/03/23 07:53 Hct 35.8 % (36-47) L 11/03/23 07:53 MCV 97.3 fl (85-98) 11/03/23 07:53 MCH 32.9 pg (27-33) 11/03/23 07:53 MCHC 33.8 g/dL (30-55) 11/03/23 07:53 RDW 13.6 % (12.1-15.1) 11/03/23 07:53 Plt Count 268 10^3/cmm (157-399) 11/03/23 07:53 MPV 9.2 fL (7.4-10.4) 11/03/23 07:53 Neut % (Auto) 80.1 % 11/03/23 07:53 Lymph % (Auto) 11.1 % 11/03/23 07:53 [facility] % (Auto) 7.9 % 11/03/23 07:53 Eos % (Auto) 0.2 % 11/03/23 07:53 Baso % (Auto) 0.3 % 11/03/23 07:53 Neut # (Auto) 11.43 10^3/uL (1.8-7.7) H 11/03/23 07:53 Lymph # (Auto) 1.6 10^3/uL (0.8-4.8) 11/03/23 07:53 [facility] # (Auto) 1.1 10^3/uL (0.2-0.9) H 11/03/23 07:53 Eos # (Auto) 0.0 10^3/uL (0.0-0.8) 11/03/23 07:53 Baso # (Auto) 0.0 10^3/uL (0.0-0.1) 11/03/23 07:53 Nucleated RBC % (auto) 0 % 11/03/23 07:53 Nucleated RBCs # 0.0 /100WBC 11/03/23 07:53 Sodium 142 mmol/L (136-145) 11/03/23 07:53 Potassium 3.8 mmol/L (3.5-5.1) 11/03/23 07:53 Chloride 109 mmol/L (98-107) H 11/03/23 07:53 Carbon Dioxide 20 mmol/L (22-29) L 11/03/23 07:53 Anion Gap 16.8 (5-19) 11/03/23 07:53 BUN 18 mg/dL (8-23) 11/03/23 07:53 Creatinine 0.7 mg/dL (0.5-0.9) 11/03/23 07:53 GFR Calculation 84.5 mL/min (90-130) L 11/03/23 07:53 Glucose 107 mg/dL (65-115) 11/03/23 07:53 Calculated Osmolality 296 mOsm/kg (285-295) H 11/03/23 07:53 Calcium 9.1 mg/dL (8.5-10.5) 11/03/23 07:53 Total Bilirubin 0.3 mg/dL (0.15-1.2) 11/03/23 07:53 AST 19 U/L (0-32) 11/03/23 07:53 ALT 18 U/L (0-33) 11/03/23 07:53 Alkaline Phosphatase 91 U/L (35-105) 11/03/23 07:53 Total Protein 6.6 g/dL (6.6-8.7) 11/03/23 07:53 Albumin 3.9 g/dL (3.5-5.2) 11/03/23 07:53 Globulin 2.7 g/dL (1.3-4.6) 11/03/23 07:53 All radiology interpretation(s) finalized by discharge Discharge Plan Discharge Patient Disposition: Home Clinical Impression: Lumbar stenosis with neurogenic claudication Condition: Stable Prescriptions: New tizanidine 4 mg tablet 4 mg PO Q6H PRN (Reason: muscle spasticity) Qty: 20 0RF Rx Instructions: do not exceed 3 doses per 24 hrs hydrocodone-acetaminophen 5-325 mg tablet 1 tab PO Q6H PRN (Reason: pain) Qty: 10 0RF prednisone 20 mg tablet 20 mg PO TID Qty: 15 0RF Rx Instructions: 1 p.o. 3 times daily x3 days, 1 p.o. twice daily x2 days, 1 p.o. daily x2 days diclofenac sodium 75 mg tablet,delayed release (DR/EC) 75 mg PO Q12H PRN (Reason: pain) Qty: 20 0RF No Action cyanocobalamin (vitamin B-12) 1,000 mcg/mL solution 1,000 mcg IM .monthly Qty: 1 2RF Dramamine 25 mg Tablet,Chewable 25 mg PO DIRECTED PRN (Reason: Nausea) Discharge Orders: Discharge ED (Routine); Ordered 11/03/23 Ordered By: Taran Rowan Referrals: Bhargavi Guerra FNP [Primary Care Provider] - Discharge Diet: Usual diet Discharge Activity: Limit activity as instructed Patient Instructions: Opioid Safety, Pain Management Activity Restrictions/Additional Instructions: Thank you for choosing [facility] for your healthcare needs today. It is very important that you follow up as instructed or that you return to the Emergency Department should you have concerns or if your condition changes or worsens in any way. You are seen today for groin and right leg pain. Suspect this is from impingement of the nerve in your low back. There is no acute fractures in your lumbar spine. You were given pain medications emergency room recommend starting the steroid taper tomorrow you can also use diclofenac hydrocodone and tizanidine as needed for discomfort. Recommend you follow-up with your primary care doctor if not improving for potential further evaluations. Coding Level of Care Code ED Trap Setter for Jenny Velasquez
[2023-11-03] MEDS: orphenadrine 30 mg/mL Inj 2 mL 60 MG IV (07:30)
[2023-11-03] MEDS: dexamethasone 10 mg/mL INJ IVP (07:30)
[2023-11-03] MEDS: ondansetron 2 mg/ML SDV 2 mL 4 MG IVP (07:30)
[2023-11-03] MEDS: ketorolac 30 mg/mL INJ IVP (07:30)
--- NOTE | 2023-11-03 07:31 | CTR_ITS ---
PROCEDURE INFORMATION: Exam: CT Lumbar Spine Without Contrast Exam date and time: 11/03/2023 8:10 AM Age: 63 years old Clinical indication: Pain; Sciatica; Right; Additional info: Right leg radiculopathy, history t12 compression fracture TECHNIQUE: Imaging protocol: Computed tomography of the lumbar spine without contrast. Radiation optimization: All CT scans at this facility use at least one of these dose optimization techniques: automated exposure control; mA and/or kV adjustment per patient size (includes targeted exams where dose is matched to clinical indication); or iterative reconstruction. COMPARISON: MR lumbar spine wo con* [id number] 07/18/2023 9:14 AM RADIATION DOSE METRICS: Total DLP (mGy-cm): 447.71 FINDINGS: Bones/joints: Bones are demineralized. There is stable chronic T12 compression fracture. There is no acute lumbar compression fracture. There are generalized disc bulges, marginal osteophytes, thickening of ligamentum flavum, and facet degenerative changes. There are similar degenerative changes with adequate spinal canal. There is similar neural foraminal narrowing left L5-S1 with foraminal disc protrusion and osteophyte. Remaining neural foramen do not appear significantly narrowed. Adrenal glands: Again seen is low-density nodule left adrenal gland slightly increased in size 2.6 cm versus 2.3 cm. There is low-density thickening right adrenal gland. Vasculature: Atherosclerotic change. No aortic aneurysm. Soft tissues: Unremarkable. CT/CT lumbar spine wo con* [id number] IMPRESSION: Degenerative changes with stable left L5 neural foraminal narrowing.
[2023-11-03 08:01] LABS: Basophils % 0.3 %; Eosinophils % 0.2 %; Hematocrit 35.8 % (36-47); Lymphocytes # 1.6 10^3/uL (0.8-4.8); Lymphocytes % 11.1 %; Mean Corpuscular HGB Conc 33.8 g/dL (30-55); Mean Corpuscular Hemoglobin 32.9 pg (27-33); Mean Corpuscular Volume 97.3 fl (85-98); Mean Platelet Volume 9.2 fL (7.4-10.4); Monocytes # 1.1 10^3/uL (0.2-0.9); Monocytes % 7.9 %; Neutrophils # 11.43 10^3/uL (1.8-7.7); Neutrophils % 80.1 %; Nucleated Red Blood Cells % 0 %; Platelet Count 268 10^3/cmm (157-399); Red Blood Count 3.68 10^6/uL (3.85-5.65); Red Cell Distribution Width 13.6 % (12.1-15.1); White Blood Count 14.28 10^3/uL (3.29-11.43)
[2023-11-03 08:16] LABS: Alanine Aminotransferase 18 U/L (0-33); Albumin Level 3.9 g/dL (3.5-5.2); Alkaline Phosphatase 91 U/L (35-105); Anion Gap 16.8 (5-19); Aspartate Amino Transferase 19 U/L (0-32); Blood Urea Nitrogen 18 mg/dL (8-23); Calcium 9.1 mg/dL (8.5-10.5); Carbon Dioxide 20 mmol/L (22-29); Chloride 109 mmol/L (98-107); Creatinine Clr Calc Pharmacy 80.6547; Globulin 2.7 g/dL (1.3-4.6); Glomerular Filtration Rate 84.5 mL/min (90-130); Glucose 107 mg/dL (65-115); Osmolality Calculated 296 mOsm/kg (285-295); Potassium 3.8 mmol/L (3.5-5.1); Sodium 142 mmol/L (136-145); Total Bilirubin 0.3 mg/dL (0.15-1.2); Total Protein 6.6 g/dL (6.6-8.7)
[2023-11-03 08:30] VITALS: BP 121/68; PULSE 95; RESP 17; O2SAT 92
[2023-11-03 08:33] VITALS: RESP 17; O2SAT 94
[2023-11-03] MEDS: diphenhydrAMINE 50 mg/mL SDV 1mL 25 MG IVP (08:33)
[2023-11-03] MEDS: morphine 4 mg/mL SDV 1 mL IVP (08:33)
[2023-11-03 09:00] VITALS: BP 126/76; PULSE 92; O2SAT 95
--- NOTE | 2023-11-03 09:00 | PC.NURSE ---
PT PLACED ON 2L NASAL CANNULA DUE TO OXYGEN SATURATION DROPPING POST MORPHINE ADMINISTRATION.
[2023-11-03 10:30] VITALS: BP 128/79; PULSE 90; O2SAT 93
[2023-11-03 11:22] VITALS: PULSE 87; O2SAT 95
== END 2023-11-03 11:23 | disposition home or self-care (01) ==
PROVIDERS: Emergency Provider Family Medicine; PCP Nurse Practitioner Family
DX: M48.062 Spinal stenosis, lumbar region with neurogenic claudication (principal); F17.290 Nicotine dependence, other tobacco product, uncomplicated
CPT/HCPCS: 36415; 72131; 80053; 85025; 96374; 96375; 99285; J1100; J1200; J1885; J2270; J2360; J2405

== ENCOUNTER 2023-11-11 11:00 | Outpatient (CLI) | payer OTHER, SELFPAY ==
--- NOTE | 2023-11-11 11:00 | FL_ITS ---
WS: [id number] Exam: FL barium swallow modifd [id number] Date/Time of Exam: 11/11/2023 11:23 AM Reason For Exam: Fluoroscopy time: 1min [id number] minutes # of spot films: 0 The exam was performed in conjunction with the speech therapy service. The patient tolerated all consistencies of barium mixture foodstuffs without aspiration or penetratio n. Oropharyngeal phase of swallowing was normal. The patient ingested a barium tablet without difficu lty. FL/FL barium swallow modifd [id number] IMPRESSION: 1. Unremarkable modified barium swallow test. No aspiration or penetration. A separate report and recommendations will follow from the speech therapy servi ce.
== END 2023-11-11 11:16 | disposition home or self-care (01) ==
PROVIDERS: PCP Nurse Practitioner Family; Visit Provider Surgery
DX: R73.9 Hyperglycemia, unspecified (principal); R13.10 Dysphagia, unspecified
CPT/HCPCS: 74230; 83036; 92611

== ENCOUNTER 2023-12-08 09:01 | Day surgery (SDC) | payer OTHER, SELFPAY ==
--- NOTE | 2023-12-08 08:55 | P.HP_ITS ---
Same Day Surgery H&P Indication for Procedure/HPI DATE OF PROCEDURE: December 08, 2023 CHIEF COMPLAINT/INDICATIONFOR SURGICAL PROCEDURE: dysphagia PREOP DIAGNOSIS: dysphagia PLANNED PROCEDURE: Operation Date: 12/08/23 10:15 Proposed Procedures p EGD Dilation W/ Balloon 26323, R13.10(Not Applicable) - Kana Askew MD Medications/Allergies* Home Medications Medication Instructions Recorded Confirmed Type dimenhydrinate 25 mg chewable 25 mg PO DIRECTED PRN Nausea 06/13/23 12/06/23 History tablet (Dramamine) ascorbic acid (vitamin C) 500 mg 1,000 mg PO DAILY 12/06/23 12/06/23 History tablet (Vitamin C) cholecalciferol (vitamin D3) 25 75 mcg PO DAILY 12/06/23 12/06/23 History mcg (1,000 unit) tablet (Vitamin D3) omega 8-fkr-vgc-fish oil 1,200 mg 2,400 cap PO DAILY 12/06/23 12/06/23 History (144 mg-216 mg) capsule (Fish Oil) vitamin B complex 1 tab PO DAILY 12/06/23 12/06/23 History zinc 100 mg tablet 100 mg PO DAILY 12/06/23 12/06/23 History Allergies/Adverse Reactions Allergy/AdvReac Type Severity Reaction Status Date / Time Penicillins Allergy Severe ALGY-Hives Verified 11/08/23 13:19 morphine Allergy nausea Verified 11/08/23 13:19 Pertinent History/Comorbid Conditions* Medical History (Updated 11/08/23 @ 14:34 by SANTIAGO Nair) Urgency incontinence Migraines GERD (gastroesophageal reflux disease) History of colon polyps Rib fracture Microscopic hematuria Recurrent UTI Symptoms consistent with longstanding history of chronic cystitis. Prompt breakthrough after completing antibiotics. Surgical History (Updated 07/17/23 @ 11:14 by Joel Hicks DO) S/P left inguinal hernia repair History of esophagogastroduodenoscopy (EGD) Hx of colonoscopy with polypectomy 10 yrs ago Status post colonoscopy H/O wrist surgery S/P appendectomy S/P hysterectomy Family History (Updated 07/23/19 @ 16:36 by Kenyatta Crump RN) Father Mother, 32 Cancer Mother Brain Social History Smoking and tobacco/nicotine status: current every day tobacco/nicotine user e- cigarettes E-Cigarette Details: vaporizer device and with nicotine E-cig/vape details: Hx of 0.5 PPD x 47 Years Quit status (tobacco/nicotine): considering quitting Second hand smoke exposure: Yes Alcohol intake: never Substance/Drug Use: never Lives independently: Yes Household members: spouse Marital status: / Current occupational status: retired Do you think of yourself as: Straight/Heterosexual Current gender identity: Female Pertinent Exam Findings alert, oriented x 3, clear to auscultation bilaterally and regular rate & rhythm Recommendations Surgery/Procedure today Coding Level of Care Code Acute Code for Chg Fwd
[2023-12-08 09:16] VITALS: BP 121/71; PULSE 87; RESP 18; TEMP 36.7; O2SAT 97
[2023-12-08 09:18] VITALS: BMI 19.9
[2023-12-08] MEDS: sodium chloride 0.9% 1,000 ML 30 ML IV (09:26)
--- NOTE | 2023-12-08 10:14 | ANES.PREANE2 ---
Pre-Anesthetic Assessment Height/Weight: Height 1.73 m Weight 59.421 kg Temp Pulse Resp BP Pulse Ox O2 Del Method 98.0 F 87 18 121/71 97 Room Air 12/08/23 09:16 12/08/23 09:16 12/08/23 09:16 12/08/23 09:16 12/08/23 09:16 12/08/23 09:16 Preop Diagnosis: dysphagia Operation Date: 12/08/23 10:15 Proposed Procedures p EGD Dilation W/ Balloon 16472, R13.10(Not Applicable) - Kana Askew MD Was Beta Colt taken within 24 hours: N/A Was Clonidine taken within 24 hours: N/A Last intake: Intake Last Liquid Date 12/07/23 Last Liquid Time 21:30 Last Solid Date 12/07/23 Last Solid Time 20:30 Social Tobacco (1ppd x50 yr) and No alcohol Exam alert, oriented x 3 and regular rate & rhythm Airway Mallampati: Class II Dentition: full History/ROS No significant history except as noted Pulmonary Chronic Obstructive Pulmonary Disease CV/HEM None reported Urinary Tract Infection (history) Hepatic None reported GI Gastroesophageal Reflux Disease dysphagia Metabolic None reported Musc/skel None reported Neuropsych None reported Anesthetic Plan ASA status: 2 Anesthesia: Anesthesia Evaluation and MAC Risk of > 500 ml blood loss (7ml/kg in children): No Medications/Allergies Home Medications Medication Instructions Recorded Confirmed Last Taken Type dimenhydrinate 25 mg chewable 25 mg PO DIRECTED PRN Nausea 06/13/23 12/08/23 12/06/23 History tablet (Dramamine) cyanocobalamin (vitamin B-12) 1,000 mcg IM .monthly #1 mL 10/17/23 12/08/23 11/15/23 Rx 1,000 mcg/mL injection solution ascorbic acid (vitamin C) 500 mg 1,000 mg PO DAILY 12/06/23 12/08/23 12/06/23 History tablet (Vitamin C) cholecalciferol (vitamin D3) 25 75 mcg PO DAILY 12/06/23 12/08/23 12/06/23 History mcg (1,000 unit) tablet (Vitamin D3) omega 3-gvl-alf-fish oil 1,200 mg 2,400 cap PO DAILY 12/06/23 12/08/23 12/06/23 History (144 mg-216 mg) capsule (Fish Oil) vitamin B complex 1 tab PO DAILY 12/06/23 12/08/23 12/06/23 History zinc 100 mg tablet 100 mg PO DAILY 12/06/23 12/08/23 12/06/23 History Allergies Allergy/AdvReac Type Severity Reaction Status Date / Time Penicillins Allergy Severe ALGY-Hives Verified 12/08/23 09:15 morphine Allergy nausea Verified 12/08/23 09:15 Current Medications Generic Name Dose Route Start Last Admin Trade Name Freq PRN Reason Stop Dose Admin Sodium Chloride 1,000 mls @ 30 mls/hr 12/08/23 09:15 12/08/23 09:26 Sodium Chloride 0.9% IV 30 mls/hr .Q24H RUBY Administration PFSH Anesthesia Medical History Urgency incontinence Migraines GERD (gastroesophageal reflux disease) History of colon polyps Rib fracture Microscopic hematuria Recurrent UTI Symptoms consistent with longstanding history of chronic cystitis. Prompt breakthrough after completing antibiotics. Surgical History S/P left inguinal hernia repair History of esophagogastroduodenoscopy (EGD) Hx of colonoscopy with polypectomy 10 yrs ago Status post colonoscopy H/O wrist surgery S/P appendectomy S/P hysterectomy Family History Father No problems noted. Mother , 32 Cancer Brain Social History Smoking and tobacco/nicotine status: current every day tobacco/nicotine user e-cigarettes E-Cigarette Details: vaporizer device and with nicotine E-cig/vape details: Hx of 0.5 PPD x 47 Years Quit status (tobacco/nicotine): considering quitting Second hand smoke exposure: Yes Alcohol intake: never Substance/Drug Use: never Lives independently: Yes Household members: spouse Marital status: / Current occupational status: retired Do you think of yourself as: Straight/Heterosexual Current gender identity: Female Data Anesthesia Cardiac Studies: Echocardiogram 07/22/23 Sestamibi Stress Test (Cardiology) 08/01/23
[2023-12-08 10:42] VITALS: BP 133/70; PULSE 82; RESP 18; TEMP 36.1; O2SAT 96
[2023-12-08 10:55] VITALS: BP 138/84; PULSE 82; RESP 18; O2SAT 98
[2023-12-08 11:05] VITALS: BP 133/84; PULSE 87; RESP 18; O2SAT 98
--- NOTE | 2023-12-08 11:10 | ANE.PACU2 ---
Inpatient post-anesthesia follow up: Airway intact: Yes Vital signs: Temperature 97.0 F Pulse Rate 87 Respiratory Rate 18 Blood Pressure 133/84 Pulse Oximetry 98 Oxygen Delivery Me thod Room Air Oxygen Flow Rate Fraction of Inspir ed Oxygen Hydration adequate: Yes Nausea and vomiting: No Pain level: 1 Mental status: Baseline
== END 2023-12-08 11:12 | disposition home or self-care (01) ==
PROVIDERS: PCP Nurse Practitioner Family; Visit Provider Surgery
DX: R13.10 Dysphagia, unspecified (principal); K21.00 Gastro-esophageal reflux disease with esophagitis, without bleeding; F17.290 Nicotine dependence, other tobacco product, uncomplicated; J44.9 Chronic obstructive pulmonary disease, unspecified; K29.80 Duodenitis without bleeding
CPT/HCPCS: 43239; 88305; J2704; J7030